=== PATIENT | female | born 1950 | race Caucasian/White ===

== ENCOUNTER → 2020-09-02 13:36 | Outpatient (CLI) | payer MEDICARE, SELFPAY ==
--- NOTE | ~2020-09-02 | MM_ITS ---
EXAMINATION: MM screening veronique BI [facility] HISTORY: Screening TECHNIQUE: Craniocaudal and mediolateral oblique 3-D tomosynthesis images were obtained and synthetic 2-D images were generated. CAD analysis was submitted and interpreted. COMPARISON: Comparison to multiple prior studies sequentially, with oldest reviewed study dated 02/11. BREAST PARENCHYMAL COMPOSITION: There are scattered areas of fibroglandular density. FINDINGS: There is no evidence of suspicious mass, calcification, or architectural distortion to sugg est malignancy in either breast. There has been no suspicious interval change. IMPRESSION: 1. No mammographic evidence of malignancy. 2. Recommend routine screening mammography in one year. BI-RADS Category 1: Negative Reviewed, dictated and finalized at location A.
== END ==
PROVIDERS: PCP Family Medicine; Visit Provider Family Medicine
DX: Z12.31 Encounter for screening mammogram for malignant neoplasm of breast (principal)
CPT/HCPCS: 77063; 77067

== ENCOUNTER → 2022-03-27 12:06 | Outpatient (CLI) | payer MEDICARE, SELFPAY ==
--- NOTE | ~2022-03-27 | MM_ITS ---
EXAMINATION: MM screening veron[facility] HISTORY: Screening mammogram TECHNIQUE: Craniocaudal and mediolateral oblique 3-D tomosynthesis images were obtained and synthetic 2-D images were generated. CAD analysis was submitted and interpreted. COMPARISON: 09/12/2020, 04/03/2019, 02/26/2017 bilateral screening mammogram examinations BREAST PARENCHYMAL COMPOSITION: There are scattered areas of fibroglandular density. FINDINGS: There is no evidence of suspicious mass, calcification, or architectural distortion to sugg est malignancy in either breast. There has been no suspicious interval change. IMPRESSION: 1. No mammographic evidence of malignancy. 2. Recommend routine screening mammography in one year. BI-RADS Category 1: Negative Reviewed, dictated and finalized at location A.
== END ==
PROVIDERS: PCP Family Medicine; Visit Provider Family Medicine
DX: Z12.31 Encounter for screening mammogram for malignant neoplasm of breast (principal)
CPT/HCPCS: 77063; 77067

== ENCOUNTER 2023-01-29 10:02 | Outpatient (CLI) | payer MEDICARE, SELFPAY ==
[2023-01-29 19:00] LABS: Basophils Absolute Auto 0.1 K/mm3 (0.0-0.1); Basophils Percent Auto 0.9 % (0.2-1.2); Eosinophils Absolute Auto 0.2 K/mm3 (0-0.3); Eosinophils Percent Auto 3.2 % (0-4.4); Hematocrit 43.7 % (37.0-47.0); Hemoglobin 14.2 g/dL (12.0-15.0); Immature Granulocyte Absolute 0.01 K/mm3 (0.00-0.031); Immature Granulocyte Percent A 0.2 % (0-0.5); Lymphocytes Absolute Auto 1.46 K/mm3 (0.9-3.2); Lymphocytes Percent Auto 27.2 % (18.3-44.2); Mean Corpuscular HGB Conc 32.5 g/dl (32-36); Mean Corpuscular Hemoglobin 30.1 pg (26-34); Mean Corpuscular Volume 92.8 fl (80-100); Mean Platelet Volume 10.7 fl (7.4-10.4); Monocytes Absolute Auto 0.3 K/mm3 (0.1-0.6); Monocytes Percent Auto 6.3 % (2.6-8.5); Neutrophils Absolute Auto 3.3 K/mm3 (1.3-6.7); Neutrophils Percent Auto 62.2 % (45.5-73.1); Platelet Count Result 205 k/mm3 (150-375); Red Blood Count 4.71 M/mm3 (4.2-5.4); Red Cell Distribution Width 12.5 % (11.5-14.5); White Blood Count 5.4 K/mm3 (4.5-10.0)
[2023-01-29 20:15] LABS: Alanine Aminotransferase 21 U/L (6-35); Albumin Level 4.7 g/dL (3.5-5.1); Alkaline Phosphatase 83 U/L (38-126); Anion Gap 8 mmol/L (8-16); Aspartate Amino Transferase 39 U/L (14-36); Bilirubin,Total 0.8 mg/dL (0.2-1.3); Blood Urea Nitrogen 18 mg/dL (7-17); Calcium 9.1 mg/dL (8.4-10.2); Carbon Dioxide 29 mmol/L (22-30); Chloride 101 mmol/L (98-107); Cholesterol 294 mg/dL (0-200); Estimated Glomerular Filt Rate > 60; Glucose 87 mg/dL (65-110); HDL Direct 38 mg/dL; Potassium 3.6 mmol/L (3.4-5.0); Sodium 138 mmol/L (137-145); Triglycerides 181 mg/dL (<150)
[2023-01-29 20:27] LABS: LDL Cholesterol Direct 164 mg/dL
[2023-01-29 20:42] LABS: Appearance Urine Clear (Clear); Bacteria Urine 1+ /hpf; Bilirubin Urine Negative (Negative); Blood Urine Negative (Negative); Color Urine Yellow (Yellow); Glucose Urine UA Negative (Negative); Ketones Urine Negative (Negative); Leukocyte Esterase Ur 1+ LEU/UL (NEGATIVE); Nitrate Urine Negative (Negative); Non Pathogenic Casts 0-2; Protein Urine Negative (Negative); RBC Urine 0-2 /hpf (0-2); Specific Grav Ur 1.003 (1.001-1.035); Squamous Epithelial Cell Urine Few /hpf (Few); Urobilinogen Urine 0.2 mg/dL (<2.0); WBC Urine 0-5 /hpf (0-3)
[2023-01-29 22:29] LABS: Add Urine Microscopic? YES
[2023-02-02 22:00] LABS: Vitamin D 1,25 (OH)2 Total 51 pg/mL (18-72); Vitamin D2 1,25 (OH)2 <8 pg/mL; Vitamin D3 1,25 (OH)2 51 pg/mL
== END 2023-01-29 10:03 | disposition home or self-care (01) ==
PROVIDERS: PCP Family Medicine; Visit Provider Family Medicine
DX: E78.2 Mixed hyperlipidemia (principal); K59.09 Other constipation; I10 Essential (primary) hypertension; E55.9 Vitamin D deficiency, unspecified; D51.9 Vitamin B12 deficiency anemia, unspecified
CPT/HCPCS: 36415; 80048; 80061; 80076; 81001; 82607; 82652; 83735; 84443; 85025

== ENCOUNTER → 2023-02-06 10:11 | Outpatient (CLI) | payer MEDICARE, SELFPAY ==
--- NOTE | ~2023-02-06 | XR_ITS ---
AP view of the pelvis and AP and lateral views of the bilateral hips Clinical history: Pain Findings: No acute fracture or dislocation is seen. There is advanced degenerative change of the bila teral hip joints, especially at the superior aspect. There is joint space narrowing, sclerotic change , and probably areas of subchondral cystic change. Small femoral head neck junction osteophytes are p resent bilaterally. Soft tissues are unremarkable. Impression: Advanced bilateral hip joint osteoarthritis. No fracture or dislocation. Reviewed, dictated and finalized at location M. Impression: Advanced bilateral hip joint osteoarthritis. No fracture or dislocation.
--- NOTE | ~2023-02-06 | XR_ITS ---
Lumbosacral Spine: AP, oblique, and lateral views Clinical History: Pain Findings: The normal lordotic curve is maintained. Mild anterior wedging deformity of L4 noted. There are mild degenerative disc changes of the lumbar spine. There is mild facet arthropathy from L3 thro ugh S1. The sacroiliac joints are normally outlined. Impression: Minimal anterior wedging deformity of L4. Mild degenerative spondylosis, as above. Reviewed, dictated and finalized at location . Impression: Minimal anterior wedging deformity of L4. Mild degenerative spondylosis, as above.
== END ==
PROVIDERS: PCP Family Medicine; Visit Provider Family Medicine
DX: G89.29 Other chronic pain (principal); M54.41 Lumbago with sciatica, right side; M54.42 Lumbago with sciatica, left side; M25.552 Pain in left hip; M25.551 Pain in right hip; M16.0 Bilateral primary osteoarthritis of hip; M48.56XA Collapsed vertebra, not elsewhere classified, lumbar region, initial encounter for fracture; M43.06 Spondylolysis, lumbar region
CPT/HCPCS: 72110; 73521

== ENCOUNTER 2023-04-24 13:30 | Outpatient (RCR) | payer MEDICARE, SELFPAY ==
--- NOTE | 2023-02-27 13:42 | PTOPEVAL1 ---
Assessment and note entered by Nancy Kapadia, PT Evaluation Information Assessment Status Evaluation Diagnosis chronic pain R hip, L hip, low back with sciatica R and L LE Onset over one year ago Subjective Information gradual increase in back pain; had x rays of back ; go to fitness center 3x/wk- treadmill, stationary bike, sometimes do arm weights; xray report: hips: advanced degenerative arthritis in both hips ; lumbar: minimal degenerative changes, anterior wedging L 4 Reported Pain Level Pain Score Self Report Additional Pain Score Comments pain range in the past week: 0-6 /10; back pain, radicular to L ankle intermittent, L anterior hip/ R radicular to above knee; decrease pain with duloxetine- new script, hot bath; increase pain with rainy weather, go on treadmill for one hour- too long, discussed less pressure on back with stationary bike; sitting too long- 1 hour; lifting at [employer]; sleep is not disrupted due to back pain; Assessment PT Clinical Summary Josephine has the diagnosis of chronic pain, back pain - sciatica, R hip and L hip pain. She reports gradual increase in back pain, without recent injury or trauma to back. Intermittent sciatica into R leg to above knee and L LE to ankle. She has a history of lumbar discectomy, over 10 yrs ago. Her pain is increased with sitting or walking too long, lifting. Self assessment Oswestry score of 40% limitation in activity level. xray reports hip arthritis R & L. With the evaluation, she has decreased ROM of both hips, IR and ER motions; hamstring tightness on L with pain increase back; decreased strength of Trunk and hips, L weaker than R; poor standing position of trunk and tends to sit with her legs crossed and rounded trunk. Skilled PT services are indicated for modalities to decrease pain, therapeutic exercises to increase trunk and hip flexibility and strength, education for posture correction and body mechanics. And pain management techniques and prevention of further back issues. Plan of Care Interventions Hot Pack/Cold Pack,Manual Therapy,Mechanical Traction,Neuro Re-education,Patient/Caregiver Education,Therapeutic Activities,Therapeutic
--- NOTE | 2023-02-27 13:45 | PCPTNOTE ---
during the evaluation, pt reports she will be out of town from March 07 to .
--- NOTE | 2023-03-26 11:49 | PTOPPROG ---
Assessment and note entered by aNncy Kapadia, PT Evaluation Information Assessment Status Progress Diagnosis chronic pain R hip, L hip, low back with sciatica R and L LE Onset over one year ago Subjective Information Josephine reports: back is still hurting, depends upon what she does; some of the exercises hurt her back; will be going out of town soon for family memebers' in [place], not sure of the date yet; wants to continue therapy; needs her to get therapy prior to insurance to approve an MRI of her back; PAIN range in the past week 1-10/10, low back, into L LE to mid thigh & R to mid thigh; increase pain with trunk extension; decrease pain with sitting, resting, hot bath; Assessment PT Clinical Summary Josephine has received a total of 5 PT sessions; she was out of town for 1 week of the session. Compared to the initial evaluation: pain rating is worse, was 0-6/10 and is now 1-10/10; radicular pain is less in L- was to ankle, now to mid thigh and R is the same; increase flexibility of L hamstring with SLR, with increase back pain; continues to have R trunk and shoulder forward rotation in standing; 2 minute walking distance increased by 40'; Oswestry self assessment rating improved by 4%, from 40 to 36% limitations; She has been educated on home exercise program and posture. Plan of Care Interventions Aquatic Therapy,Electrical Stimulation,Hot Pack/ Cold Pack,Manual Therapy,Neuro Re-education, Patient/Caregiver Education,Therapeutic Activities, Therapeutic Exercise,Ultrasound,Other Other Interventions taping PT Services Indicated Yes Treatment Frequency and 2x/wk for 4 weeks Duration These treatments will address the objective and functional deficits as defined above. The patient will be advanced safely and appropriately in order for the patient to progress towards his/her prior level of function. Additional exercises will be introduced and as well as a comprehensive home exercise program upon discharge, if needed, ?to ensure carryover of functional gains achieved in the clinic. This treatment plan has been reviewed and agreement upon by the patient.
--- NOTE | 2023-03-26 11:54 | PCPTNOTE ---
during today's progress/reeval, pt reports she will be going out of town for great nephew's soon, does not know the date yet. so, she did not schedule for next week, and will call and add appt once she finds out the date.
--- NOTE | 2023-04-24 14:12 | PTOPPROG ---
Assessment and note entered by Nancy Kapadia, PT Evaluation Information Assessment Status Progress Diagnosis chronic pain R hip, L hip, low back with sciatica R and L LE Onset over one year ago Subjective Information Josephine reports: she has good days and bad days; thinks she overdid it with the pool exercises a few days ago at her daughter's pool--did too much; is not able to walk or do as much as she wants to, have to sit and rest due to pain; wants to get an MRI to check her back and see what is going on; she would consider surgery if it is not a major one, but does not want any major, involved back surgery; is doing her home exercises and understands that she has to do a little, then rest PAIN: range in the past week 2-10/10, low back, into R and L LE to proximal to knee, to L ankle at times- intermittent post thighs; increase pain with walking decrease pain with sitting, resting, taking prescription meds, not sure if working or helping Oswestry self assessment score of 42% limitation in activity level; discussed home stim unit with pt--she does not have one, educated on obtaining and pad placement of the unit; she is interested in obtaining one; Assessment PT Clinical Summary Josephine has received a total of 10 PT sessions. Compared to the last reevaluation: pain rating is about the same, was 1-10/10 and now 2-10/10; radicular pain into R LE is the same to above the knee and into the L is worse--sometimes into ankle Self assessment Oswestry score is 2% worse, now 42% limitation in activity level; increase hip flexibility of R piriformis; slight increase R hip strength and L is about the same--increase in pain limits her doing more; 2 minute walking test distance decreased by 40'; She has been educated on posture, home exercise program--land and in the water, pain management and control techniques. The goals were partially met. PLAN: HOLD PT and she is to follow up with . If PT is to continue, she will obtain a new script Plan of Care Interventions Aquatic Therapy,Electrical Stimulation,Hot Pack/ Cold Pack,Manual Therapy,Neuro Re-education, Patient Education,Therapeut
--- NOTE | 2023-05-24 13:26 | PTOPDC ---
Assessment and note entered by Nancy Kapadia, PT Evaluation Information Assessment Status Discharge - Pt Not Presen Diagnosis chronic pain R hip, L hip, low back with sciatica R and L LE Onset over one year ago Assessment PT Clinical Summary No further orders were received after the 04-24-23 reassessment. Therefore, she will be discharged at this time. Refer to that progress report for her status. Plan of Care PT Services Indicated No
== END 2023-05-23 12:42 | disposition home or self-care (01) ==
LOC: ANHPT 13:30
PROVIDERS: PCP Family Medicine; Visit Provider Family Medicine
DX: M25.551 Pain in right hip (principal); M25.552 Pain in left hip; M54.41 Lumbago with sciatica, right side; M54.42 Lumbago with sciatica, left side; G89.29 Other chronic pain
CPT/HCPCS: 97014; 97110; 97113; 97140; 97161; 97530; G0283

== ENCOUNTER → 2023-05-30 10:13 | Outpatient (CLI) | payer MEDICARE, SELFPAY ==
--- NOTE | ~2023-05-30 | MR_ITS ---
MRI of the lumbar spine Clinical History: Sciatica Technique: Axial T2-weighted images, and sagittal T1-weighted, T2-weighted, and T2 fat-sat images wer e acquired. Findings: No fracture identified. 5 mm retrolisthesis of L5 over S1 present. No suspicious bone marro w signal abnormality seen. At L1-L2, there is mild diffuse disc bulge and mild facet arthropathy. No central canal stenosis or d efinite neural foraminal narrowing. At L2-L3, there is mild disc bulge and mild facet arthropathy. No central canal stenosis or neural fo raminal narrowing. At L3-L4, there is disc bulge and moderate to advanced facet arthropathy. There is moderate central c anal stenosis/thecal sac compression. There is mild bilateral neural foraminal narrowing. At L4-L5, there is diffuse disc bulge and severe facet arthropathy, resulting in severe spinal canal stenosis/thecal sac compression. There is moderate to severe right neural foraminal narrowing and mil d left neural foraminal narrowing. At L5-S1, there is diffuse disc bulge and facet arthropathy. There is mild central canal stenosis. Th ere is severe bilateral neural foraminal narrowing. Paravertebral soft tissues are unremarkable. Impression: Severe degenerative spondylosis at L4-L5 and L5-S1, as detailed above. Moderate to severe degenerative spondylosis at L3-L4, as detailed above. 5 mm retrolisthesis of L5 over S1. Reviewed, dictated and finalized at [facility]. Impression: Severe degenerative spondylosis at L4-L5 and L5-S1, as detailed above. Moderate to severe degenerative spondylosis at L3-L4, as detailed above. 5 mm retrolisthesis of L5 over S1.
== END ==
PROVIDERS: PCP Family Medicine; Visit Provider Family Medicine
DX: M54.31 Sciatica, right side (principal); M54.32 Sciatica, left side; M47.896 Other spondylosis, lumbar region
CPT/HCPCS: 72148

== ENCOUNTER 2023-11-28 10:09 | Outpatient (CLI) | payer MEDICARE, SELFPAY ==
--- NOTE | 2023-11-28 | ECG_ITS ---
Measurements Intervals [place] Rate: 78 P: 56 ID: [id number] QRS: -13 QRSD: 80 T: 52 QT: 353 QTc: 402 Interpretive Statements SINUS RHYTHM LOW QRS VOLTAGE IN PRECORDIAL LEADS CANNOT RULE OUT SEPTAL INFARCT, AGE INDETERMINATE BASELINE WANDER- II, III ABNORMAL ECG COMPARED TO ECG 03/18/2019 13:20:43 NO SIGNIFICANT CHANGES Electronically Signed On 11-28-2023 12:22:31 ASSEMBLY ADJUSTER by Chris Childress D.O.
--- NOTE | ~2023-11-28 | XR_ITS ---
XR chest 2V DATE: 11/28/2023 10:30 INDICATION: Lumbar spinal stenosis. Preoperative evaluation. TECHNIQUE: PA and lateral views COMPARISON: March 18, 2019 2 view chest FINDINGS: Bilateral hyperinflation suggesting obstructive airways disease. No pulmonary infiltrate or consolidation, pleural effusion or pulmonary vascular congestion or pneumothorax. Normal heart size. No hilar or mediastinal enlargement. Aortic arch calcification. Status post cholecystectomy. IMPRESSION: Bilateral hyperinflation suggesting COPD No active cardiac pulmonary disease Aortic atherosclerosis Reviewed, dictated and finalized at location L. ENGINEER
[2023-11-28 10:49] LABS: Hematocrit 42.1 % (37.0-47.0); Hemoglobin 13.8 g/dL (12.0-15.0); Mean Corpuscular HGB Conc 32.8 g/dl (32-36); Mean Corpuscular Hemoglobin 29.9 pg (26-34); Mean Corpuscular Volume 91.3 fl (80-100); Platelet Count Result 212 k/mm3 (150-375); Red Blood Count 4.61 M/mm3 (4.2-5.4); Red Cell Distribution Width 12.1 % (11.5-14.5); White Blood Count 4.5 K/mm3 (4.5-10.0)
[2023-11-28 11:01] LABS: Prothrombin Time 13.4 Seconds (11.1-14.7)
[2023-11-28 11:05] LABS: Alanine Aminotransferase 26 U/L (6-35); Albumin Level 4.6 g/dL (3.5-5.1); Alkaline Phosphatase 80 U/L (38-126); Anion Gap 10 mmol/L (8-16); Aspartate Amino Transferase 33 U/L (14-36); Bilirubin,Total 0.6 mg/dL (0.2-1.3); Blood Urea Nitrogen 14 mg/dL (7-17); Calcium 9.6 mg/dL (8.4-10.2); Carbon Dioxide 29 mmol/L (22-30); Chloride 98 mmol/L (98-107); Estimated Glomerular Filt Rate > 60; Glucose 91 mg/dL (65-110); Potassium 3.9 mmol/L (3.4-5.0); Sodium 137 mmol/L (137-145)
== END 2023-11-28 10:10 | disposition home or self-care (01) ==
PROVIDERS: PCP Family Medicine; Visit Provider Anesthesiology Pain Medicine
DX: M48.062 Spinal stenosis, lumbar region with neurogenic claudication (principal); G89.29 Other chronic pain; I10 Essential (primary) hypertension; D51.9 Vitamin B12 deficiency anemia, unspecified; I25.10 Atherosclerotic heart disease of native coronary artery without angina pectoris
CPT/HCPCS: 36415; 71046; 80053; 85027; 85610; 93005

== ENCOUNTER 2023-12-03 05:55 | Day surgery (SDC) | payer MEDICARE, SELFPAY ==
[2023-11-28 12:27] VITALS: BMI 23.1
--- NOTE | ~2023-12-03 | XR_ITS ---
EXAMINATION: XR fluoroscopy no charge DATE: 12/03/2023 10:29 INDICATION: Lumbar spinal stenosis. TECHNIQUE: 193 intraoperative fluoroscopic views of the lumbar spine were obtained. I was not present . Fluoroscopy exposure time was 207 seconds. COMPARISON: Lumbar spine MRI 05/30/2023 FINDINGS: There is severe lumbar spondylosis. Instruments overlie the posterior elements at L3-L4 and L4-L5. IMPRESSION: 1. Severe lumbar spondylosis. Reviewed, dictated and finalized at location A. 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
--- NOTE | 2023-12-03 06:53 | PM.HPGS ---
History of Present Illness History of Present Illness Consent: Risks, benefits, and alternatives have been discussed and questions answered. Patient agrees to proceed with procedure. Chief complaint: Lumbar Spinal Stenosis w/ INC Narrative: Josephine Guerrier is a 73 year old female with chronic, progressive disabling and recalcitrant lumbar spinal stenosis with painful intermittent neurogenic claudication secondary to ligamentum flavum hypertrophy over the past several years despite aggressive conservative treatment to include PT, oral and topical analgesics, opioid and nonopioid analgesics, injection, time, rest and behavior/activity modification over the past 6-12 months resulting in severe limitations in ability to stand greater than 10-15 minutes, walk greater than 100-150ft, participate in activities including ADL's and self-care. Review of Systems Review of Systems: All systems reviewed & are unremarkable except as noted in HPI and below PMFSH Past Medical History Medical History At moderate risk for fall (~08/21/23) BMI 23.0-23.9, adult BMI 24.0-24.9, adult Chronic constipation Chronic hip pain, bilateral X-ray of the hips 02/06/2023 revealed advanced osteoarthritis bilaterally. Chronic left-sided low back pain without sciatica Chronic low back pain with bilateral sciatica X-ray of the lumbar spine on 02/06/2023 reveals mild facet arthropathy L3 through S1 with mild degenerative disc disease. Anterior wedging of L4 vertebrae. MRI of the lumbar spine on 05/30/2023 reveals severe degenerative disc disease at L4-L5 and L5-S1 with severe central spinal stenosis at L4-L5 and L5-S1 with severe right neuroforaminal narrowing at L4-L5 Chronic low back pain with right-sided sciatica COVID-19 (~12/23/20) Osteoarthritis involving multiple joints on both sides of body Overweight (BMI 25.0-29.9) Polyp of colon colon polyp 04/14/2013. Repeat colonoscopy Mar, 2018 normal Seasonal allergic rhinitis Family History Family History Mother Patient's mother is in good health Father Family history of cardiovascular disease, Onset Age: 80 Grandparent Family history of cardiovascular disease, Onset Age: 75 Family history of malignant neoplasm of bone, Onset Age: 79 Family history of malignant neoplasm of urinary bladder, Onset Age: 82 Sibling Family history of cardiovascular disease Family history of malignant neoplasm Carcinoma of colon Social History Social History Smoking status: Never smoker Second hand tobacco smoke exposure: No Alcohol intake: current Alcohol use details: rarely Substance use: never Substance use type: does not use Current Housing: Decline to Answer Concerned About Future Housing: Decline to Answer Difficulty Paying Gas/Electric Bills: Decline to Answer Difficulty Paying for Meds: Decline to Answer Currently Unemployed: Decline to Answer Education: Decline to Answer Difficulty w/ Childcare or Family Care: Decline to Answer Living arrangements: with family Spiritual care concerns: No Meds Home Medications and Allergies Home Medications Medication Instructions Recorded Confirmed Type cyanocobalamin (vitamin B-12) 1,000 mcg PO DAILY 01/23/22 11/28/23 History 1,000 mcg tablet polyethylene glycol 3350 17 17 g PO DAILY PRN constipation 08/01/22 11/28/23 History gram/dose oral powder (Miralax) benazepril 40 mg tablet 40 mg PO DAILY #90 tabs 02/06/23 11/28/23 Rx meloxicam 15 mg tablet 15 mg PO DAILY PRN pain #90 tabs 02/07/23 11/28/23 Rx duloxetine 60 mg capsule,delayed 60 mg PO DAILY #30 caps 02/27/23 11/28/23 Rx release amlodipine 5 mg tablet 5 mg PO DAILY #30 tabs 04/15/23 11/28/23 Rx cholecalciferol (vitamin D3) 50 2,000 unit PO DAILY 08/21/23 11/28/23 History mcg (2,000 unit) c
--- NOTE | 2023-12-03 07:00 | WPDHPUPDATE1 ---
History and Physical Update Update Date/Time: 12/03/23 07:00 History and Physical has been reviewed, including an updated exam of the patient. There are NO changes in the patient's condition. Risks, benefits, and alternatives have been discussed and questions answered. Patient agrees to proceed with procedure.
[2023-12-03 07:32] VITALS: BP 154/83; PULSE 77; RESP 16; TEMP 36.9; O2SAT 99; BMI 34.0
[2023-12-03] MEDS: LACTATED RINGERS 1,000 ML 30 ML IV CONT (07:46)
--- NOTE | 2023-12-03 08:07 | WPDANESEPPF ---
Anes - Initial Pre Proc Eval Procedure: Operation Date: 12/03/23 08:45 Proposed Procedures p Bilateral L3-4, L4-5 Minimally Invasive Lumbar Decompression under Fluoroscopic Guidance, Possible Epidurogram - Aidan Bah MD Date/Time: 12/03/23 08:07 Surgeon: Aidan Bah MD Pre Op Diagnosis: Lumbar Spinal Stenosis w/ INC Patient Data Age: 73 Gender: F Height: 1.7 m Weight: 98.4 kg Last Vital Signs Temp 36.9 C 12/03/23 07:32 Pulse 77 12/03/23 07:32 Resp 16 12/03/23 07:32 BP 154/83 H 12/03/23 07:32 Pulse Ox 99 12/03/23 07:32 O2 Del Method Room Air 12/03/23 07:32 Allergies Allergy/AdvReac Type Severity Reaction Status Date / Time aspirin Allergy Unknown Unknown Verified 12/03/23 07:26 Home Medications Medication Instructions Recorded Confirmed Type cyanocobalamin (vitamin B-12) 1,000 mcg PO DAILY 01/23/22 12/03/23 History 1,000 mcg tablet polyethylene glycol 3350 17 17 g PO DAILY PRN constipation 08/01/22 12/03/23 History gram/dose oral powder (Miralax) benazepril 40 mg tablet 40 mg PO DAILY #90 tabs 02/06/23 12/03/23 Rx meloxicam 15 mg tablet 15 mg PO DAILY PRN pain #90 tabs 02/07/23 12/03/23 Rx duloxetine 60 mg capsule,delayed 60 mg PO DAILY #30 caps 02/27/23 12/03/23 Rx release amlodipine 5 mg tablet 5 mg PO DAILY #30 tabs 04/15/23 12/03/23 Rx cholecalciferol (vitamin D3) 50 2,000 unit PO DAILY 08/21/23 12/03/23 History mcg (2,000 unit) capsule magnesium oxide 500 mg tablet 500 mg PO BID 08/21/23 12/03/23 History tramadol 50 mg tablet 50 mg PO Q6H PRN pain #60 tabs 08/21/23 12/03/23 Rx Patient hx anesthesia problems: none Family hx anesthesia problems: none Results Review: All pre-operative results and documents have been reviewed as part of the pre-operative evaluation. [facility] Past Medical History Medical History At moderate risk for fall (~08/21/23) BMI 23.0-23.9, adult BMI 24.0-24.9, adult Chronic constipation Chronic hip pain, bilateral X-ray of the hips 02/06/2023 revealed advanced osteoarthritis bilaterally. Chronic left-sided low back pain without sciatica Chronic low back pain with bilateral sciatica X-ray of the lumbar spine on 02/06/2023 reveals mild facet arthropathy L3 through S1 with mild degenerative disc disease. Anterior wedging of L4 vertebrae. MRI of the lumbar spine on 05/30/2023 reveals severe degenerative disc disease at L4-L5 and L5-S1 with severe central spinal stenosis at L4-L5 and L5-S1 with severe right neuroforaminal narrowing at L4-L5 Chronic low back pain with right-sided sciatica COVID-19 (~12/23/20) Osteoarthritis involving multiple joints on both sides of body Overweight (BMI 25.0-29.9) Polyp of colon colon polyp 04/14/2013. Repeat colonoscopy Mar, 2018 normal Seasonal allergic rhinitis Surgical History Surgical History (Updated 12/03/23 @ 08:08 by Saurabh Kelley MD) History of cholecystectomy History of tubal ligation Status post lumbar surgery Family History Family History Mother Patient's mother is in good health Father Family history of cardiovascular disease, Onset Age: 80 Grandparent Family history of cardiovascular disease, Onset Age: 75 Family history of malignant neoplasm of bone, Onset Age: 79 Family history of malignant neoplasm of urinary bladder, Onset Age: 82 Sibling Family history of cardiovascular disease Family history of malignant neoplasm Carcinoma of colon Social History Social History (Updated 12/03/23 @ 08:09 by Saurabh Kelley MD) Smoking status: Former smoker Second hand tobacco smoke exposure: No Alcohol intake: current Alcohol use details: rarely Substance use: never Substance use type: does not use Current Housing: Decline to Answer Concerned About Future Housing: Decline to Answer Difficulty Paying Gas/Electric Bills
[2023-12-03] MEDS: ceFAZolin SODIUM 2 GM/20 ML SW SYRINGE IV PUSH (09:12)
[2023-12-03] MEDS: LIDOCAINE HCL 2% PF INJ 5 ML VIAL 10 ML INFILTRATE (09:33)
[2023-12-03] MEDS: BUPIVACAINE/EPINEPHRINE 0.5% 50 ML VIAL 10 ML INFILTRATE (09:33)
[2023-12-03 10:22] VITALS: BP 134/74; PULSE 76; RESP 16; O2SAT 100
--- NOTE | 2023-12-03 10:23 | W.PM.PROC2 ---
Procedure Note - Detailed Date of Procedure 12/03/23 Pre-op Diagnosis Lumbar Spinal Stenosis w/ INC Post-op Diagnosis Same Procedure Performed Bilateral L3-4, L4-5 minimally invasive lumbar decompression under fluoroscopic guidance. Surgeon Aidan Bah MD Anesthesia MAC and Local Description of Procedure INFORMED CONSENT: Risks, benefits, and alternatives to the procedure were discussed in detail with the patient who expressed explicit understanding and consent to proceed. Risks discussed with the patient included but were not limited to risk of serious local or systemic infection, bleeding/bruising, epidural hematoma, dural puncture or tear resulting in CSF leak and acute or chronic post-dural puncture headache, scarring/deformity, immediate or delayed allergic reaction, decreased mobility, failure to treat pain, inadvertent neurologic injury resulting in increased pain, weakness/paralysis or numbness, inadvertent organ injury, need for additional surgery, allergic reaction, heart attack, stroke, seizure, coma, . Anesthetic risks were also briefly discussed by myself and the swabber. The patient expressed understanding and consent to proceed, agreeing that potential benefits outweigh risk of harm. All materials required for the procedure were immediately available prior to procedure start. Site and side were confirmed with the patient, compared carefully to the patient chart and consent, and marked prior to transport to the operating room. Appropriate time out procedure was performed per protocol prior to procedure start. PROCEDURE IN DETAIL: The patient was brought to the operative suite and placed in the prone position. Appropriate ASA standard monitors were attached. Anesthesia was initiated without difficulty or event. Eyes were protected. Pressure points were padded with joints in neutral position. When appropriate, breasts and genitals were evaluated and protected. Eyes were checked and were free from undue pressure. Skin overlying the procedure site was marked with sterile marker. Surgical area was prepared in a typical sterile fashion with ChloraPrep and allowed to dry for at least 3 minutes prior to sterilely draping the surgical site. The lumbar spine was identified in the AP fluoroscopic view with slight cephalad tilt perfectly aligning the endplates at the targeted levels with spinous processes bisecting the transpedicular plane. After identifying the intended incision site approximately 1.5 levels inferior to the level of interest, the area was anesthetized by infiltration with no more than 10ml of a 1:1 admixture of 0.5% PF bupivacaine with epinephrine and 2% PF lidocaine with epinepherine via a 27-gauge needle after negative aspiration. A 22-gauge spinal needle was used to provide additional and adequate local anesthesia to the level of the interspinous ligament, ligamentum flavum and the periosteum of the lamina at the intended treatment levels. In the AP view, a #11 scalpel blade was used to create a single stab incision at the intended incision site on the targeted side. The Vertos MILD kit was opened and the included cannula and trocar assembly was advanced through the incision to contact the midportion of the Right lamina just adjacent to the spinous process at L5. Once seated, the lateral view was used to gauge depth demonstrating the most anterior tip of the trocar posterior to the epidural space at all times. The garment parts cutter machine-provided cannula stabilizer was placed over the trocar flush to the patient's lumbar flank. Cannula obturator with handle was removed. Included depth guide was then attached to the insertion port on the cannula and set to an intial depth of 15 mm. The bone rongeur was advanced to the depth of the lumbar lamina at the targeted level. Depth gauge was then adjusted allowing rongeur tip to advance in the contralateral oblique view to the anterior border of the superior and inferior lamina at the
--- NOTE | 2023-12-03 10:31 | WPDANESPN ---
Anes - Prog Note Post-Op Date/Time: 12/03/23 10:31 Cardiovascular status: normal Respiratory status: normal Airway patency: baseline Mental status: baseline Post-Op hydration status: normal Vital Signs: Last Vital Signs Temp 36.9 C 12/03/23 07:32 Pulse 76 12/03/23 10:27 Resp 16 12/03/23 10:27 BP 134/74 12/03/23 10:27 Pulse Ox 100 12/03/23 10:27 O2 Del Method Room Air 12/03/23 10:27 Pain Score (VAS): 0/10 I/O: Intake & Output 12/02/23 12/03/23 12/03/23 23:59 07:59 15:59 Intake Total 700 Balance 700 Patient Feedback: Patient satisfied with anesthetic care.
[2023-12-03 10:32] VITALS: BP 156/87; PULSE 75; RESP 16; O2SAT 100
[2023-12-03 10:48] VITALS: BP 154/78; PULSE 74; RESP 16; O2SAT 100
== END 2023-12-03 10:58 | disposition home or self-care (01) ==
PROVIDERS: PCP Family Medicine; Visit Provider Anesthesiology Pain Medicine
PROC: (CPT 0275T; principal; 2023-12-03 08:45)
DX: M48.062 Spinal stenosis, lumbar region with neurogenic claudication (principal); Z00.6 Encounter for examination for normal comparison and control in clinical research program
CPT/HCPCS: 0275T; 99199

== ENCOUNTER → 2024-09-22 13:59 | Outpatient (CLI) | payer MEDICARE, SELFPAY ==
--- NOTE | ~2024-09-22 | XR_ITS ---
EXAMINATION: XR hip LT 2V w AP pelvis DATE: 09/22/2024 14:13 INDICATION: Left hip pain. TECHNIQUE: An anteroposterior view of the pelvis and 2 views of left hip were obtained. COMPARISON: Pelvis and hip radiographs 02/06/2023 FINDINGS: There is lumbar dextrocurvature and severe spondylosis. No fracture. There is advanced oste oarthritis of the hips with flattening of the superior aspects of the femoral heads. IMPRESSION: 1. Advanced osteoarthritis of the hips. Reviewed, dictated and finalized at location B.
== END ==
LOC: EXPTROY 14:00
PROVIDERS: PCP Family Medicine; Visit Provider Family Medicine
DX: M16.0 Bilateral primary osteoarthritis of hip (principal)
CPT/HCPCS: 73502

== ENCOUNTER 2024-12-02 11:12 | Outpatient (CLI) | payer MEDICARE, SELFPAY ==
--- NOTE | ~2024-12-02 | MM_ITS ---
EXAMINATION: MM screening [facility] HISTORY: Screening TECHNIQUE: Craniocaudal and mediolateral oblique 3-D tomosynthesis images were obtained and synthetic 2-D images were generated. CAD analysis was submitted and interpreted. COMPARISON: Comparison to multiple prior studies sequentially, with oldest reviewed study dated 02/19. BREAST PARENCHYMAL COMPOSITION: Not dense: There are scattered areas of fibroglandular density. FINDINGS: There is no evidence of suspicious mass, calcification, or architectural distortion to sugg est malignancy in either breast. There has been no suspicious interval change. IMPRESSION: 1. No mammographic evidence of malignancy. 2. Recommend routine screening mammography in one year. BI-RADS Category 1: Negative Reviewed, dictated and finalized at location B. 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
== END 2024-12-02 11:13 | disposition home or self-care (01) ==
LOC: MICIMG 11:12
PROVIDERS: PCP Family Medicine; Visit Provider Family Medicine
DX: Z12.31 Encounter for screening mammogram for malignant neoplasm of breast (principal)
CPT/HCPCS: 77063; 77067

== ENCOUNTER 2025-04-29 09:56 | Outpatient (CLI) | payer MEDICARE, SELFPAY ==
--- NOTE | 2025-04-29 10:55 | ECG_ITS ---
Test Date: 2025-04-29 11:13:29 Measurements Intervals [place] Rate: 64 P: 58 MD: 133 QRS: -19 QRSD: 80 T: 44 QT: 404 QTc: 420 Interpretive Statements SINUS RHYTHM LOW QRS VOLTAGE IN PRECORDIAL LEADS CANNOT R/O SEPTAL INFARCT, AGE INDETERMINATE BASELINE ARTIFACT- I, II, III, AVR, AVL, AVF, V1 ABNORMAL ECG No previous ECG available for comparison Electronically Signed On 04-29-2025 11:24:50 CDT by Chris Childress D.O.
[2025-04-29 12:09] LABS: Basophils Absolute Auto 0.1 K/mm3 (0.0-0.1); Basophils Percent Auto 1.1 % (0.2-1.2); Eosinophils Absolute Auto 0.2 K/mm3 (0-0.3); Eosinophils Percent Auto 4.6 % (0-4.4); Hematocrit 40.8 % (37.0-47.0); Hemoglobin 13.5 g/dL (12.0-15.0); Immature Granulocyte Absolute 0.01 K/mm3 (0.00-0.031); Immature Granulocyte Percent A 0.2 % (0-0.5); Lymphocytes Absolute Auto 1.26 K/mm3 (0.9-3.2); Lymphocytes Percent Auto 27.6 % (18.3-44.2); Mean Corpuscular HGB Conc 33.1 g/dl (32-36); Mean Corpuscular Hemoglobin 30.5 pg (26-34); Mean Corpuscular Volume 92.3 fl (80-100); Mean Platelet Volume 10.6 fl (7.4-10.4); Monocytes Absolute Auto 0.3 K/mm3 (0.1-0.6); Monocytes Percent Auto 7.2 % (2.6-8.5); Neutrophils Absolute Auto 2.7 K/mm3 (1.3-6.7); Neutrophils Percent Auto 59.3 % (45.5-73.1); Platelet Count Result 185 k/mm3 (150-375); Red Blood Count 4.42 M/mm3 (4.2-5.4); Red Cell Distribution Width 12.2 % (11.5-14.5); White Blood Count 4.6 K/mm3 (4.5-10.0)
[2025-04-29 12:21] LABS: Albumin Level 4.5 g/dL (3.5-5.1); Anion Gap 7 mmol/L (4-12); Blood Urea Nitrogen 13 mg/dL (7-17); Calcium 9.5 mg/dL (8.4-10.2); Carbon Dioxide 30 mmol/L (22-30); Chloride 100 mmol/L (98-107); Estimated Glomerular Filt Rate > 60; Glucose 85 mg/dL (65-110); Potassium 3.7 mmol/L (3.4-5.0); Sodium 137 mmol/L (137-145)
[2025-04-29 12:32] LABS: Urine Cotinine NEGATIVE
== END 2025-04-29 09:57 | disposition home or self-care (01) ==
LOC: ANHSURGERY 10:01
PROVIDERS: PCP Family Medicine; Visit Provider Orthopaedic Surgery
DX: Z01.818 Encounter for other preprocedural examination (principal); M16.12 Unilateral primary osteoarthritis, left hip; R94.31 Abnormal electrocardiogram [ECG] [EKG]
CPT/HCPCS: 80048; 80307; 82040; 83036; 85025; 87081; 87181; 93005

== ENCOUNTER 2025-05-20 00:08 | Day surgery (SDC) | payer MEDICARE, SELFPAY ==
--- NOTE | 2025-04-29 10:00 | PC.NURSE ---
Report to the Outpatient Waiting Room, entrance under the green pavilion located off [facility], at time _6 AM on date _05/20/25 . Planned Procedure Time: __7:30 AM .? Time changes happen often and if your time is changed the preop area will call you the afternoon before. - You and your visitor will be asked to self-screen and do not enter if you have any COVID symptoms. Please call surgeon if you need to reschedule. - A mask is optional within the hospital at this time. Patients may have clear liquids (water, carbonated beverages, clear teas, apple juice) until 3 hours prior to surgery ( 4:30 AM) with a maximum of 20 ounces. - No food from midnight until time of surgery and no smoking, or chewing tobacco (or any form of nicotine). No chewing gum, candy or mints. Take only the following medications with a SIP of water on the morning of surgery: AMLODIPINE DO NOT STOP ANY OF YOUR OTHER PRESCRIPTION MEDICATIONS PRIOR TO SURGERY EXCEPT THE FOLLOWING Hold all vitamins and supplements for 3 days per anesthesiologist.LAST DOSE 05/16/25 Medications to discontinue per physician HOLD DICLOFENAC 7 DAYS PRE OP PER DR ARNDT Date to take last dose____05/12/25 MAY TAKE TYLENOL IF NEEDED FOR PAIN Please no make-up, nail french, hairspray, perfume, deodorant, or body powder the day of surgery.? No jewelry (including any body piercings) or valuables the day of surgery, leave them at home.? Please take a shower or bath the night before, or the morning of, surgery with an antibacterial soap.? Wear comfortable, loose fitting clothing.? Children are encouraged to wear pajamas. - Jewelry must be removed prior to entering the operating room.? Rings and piercings that are not removed may be cut off. - The hospital will not accept responsibility for valuables.? - Please leave all valuables, including medications, at home the day of surgery. If you are going home after surgery, a licensed rental car ferry driver must drive you home.? - NO public transportation without another adult if you receive anesthesia. - We recommend that an adult stay with you for 24 hours following discharge. - We also recommend that you do not drive, make important decision, drink alcoholic beverages, or take any drugs that were not prescribed by your health care provider for at least 24 hours after your discharge time. For Pediatric surgeries, we recommend two adults accompany the child home. Follow any additional instructions given to you from your surgeon. VERBAL AND WRITTEN instructions given to __PATIENT and asked if any additional questions and then verbalized understanding. Patient advised to call surgeon office or pre surgery nurse liaison [phone] if any additional questions.
[2025-04-29 10:05] VITALS: BMI 23.7
[2025-04-29 10:54] VITALS: BP 151/79; PULSE 66; RESP 18; TEMP 37; O2SAT 97
--- NOTE | 2025-05-19 09:42 | PM.IMHP ---
H&P: HPI History of Present Illness Date/Time: 05/19/25 09:42 Chief Complaint: Left hip DJD Narrative: 74-year-old female presents today for left anterior total hip arthroplasty. Patient has been having symptoms for over a year. Her symptoms started getting much worse at the end of last year. Patient has been taking diclofenac 75 mg twice a day, this is not significantly improved her symptoms. She has advanced osteoarthritis in both hips left total on worse than right. Patient has been using a walker full-time which has helped a little bit. At this point she feels she is ready proceed with total hip arthroplasty rather than continue nonsurgical treatment. Review of Systems Review of Systems: All systems reviewed & are unremarkable except as noted in HPI and below PMFSH Past Medical History Medical History (Updated 05/04/25 @ 08:51 by Washington Blood MD) MRSA (methicillin resistant Staphylococcus aureus) carrier BMI 22.0-22.9, adult At moderate risk for fall (~08/21/23) Overweight (BMI 25.0-29.9) Chronic hip pain, bilateral X-ray of the hips 02/06/2023 revealed advanced osteoarthritis bilaterally. Chronic low back pain with bilateral sciatica X-ray of the lumbar spine on 02/06/2023 reveals mild facet arthropathy L3 through S1 with mild degenerative disc disease. Anterior wedging of L4 vertebrae. MRI of the lumbar spine on 05/30/2023 reveals severe degenerative disc disease at L4-L5 and L5-S1 with severe central spinal stenosis at L4-L5 and L5-S1 with severe right neuroforaminal narrowing at L4-L5 Chronic low back pain with right-sided sciatica BMI 24.0-24.9, adult BMI 23.0-23.9, adult Polyp of colon colon polyp 04/14/2013. Repeat colonoscopy Mar, 2018 normal Seasonal allergic rhinitis COVID-19 (~12/23/20) Osteoarthritis involving multiple joints on both sides of body Chronic constipation stable with magnesium twice daily Chronic left-sided low back pain without sciatica Left hip pain Surgical History Surgical History Status post lumbar surgery History of tubal ligation History of cholecystectomy Family History Family History Mother Father Family history of cardiovascular disease, Onset Age: 80 Grandparent Family history of cardiovascular disease, Onset Age: 75 Family history of malignant neoplasm of bone, Onset Age: 79 Family history of malignant neoplasm of urinary bladder, Onset Age: 82 Sibling Family history of cardiovascular disease Family history of malignant neoplasm Carcinoma of colon Social History Social History (Reviewed 04/28/25 @ 08:27 by Morenita Roberson [facility]) Smoking packs per day: 1 Smoking cigarettes per day: 20.0 Years smoked: 15 Smoking pack-years: 15.00 Smoking status: Former smoker Tobacco type: cigarettes Second hand tobacco smoke exposure: No Smoking end date: 11/25/79 Additional smoking assessment comments: DENIES ANY FORM OF TOBACCO USE Alcohol intake: current Alcohol use details: ONE DRINK /MONTH Substance use: never Substance use type: does not use Current Housing: Decline to Answer Concerned About Future Housing: Decline to Answer Difficulty Paying Gas/Electric Bills: Decline to Answer Difficulty Paying for Meds: Decline to Answer Currently Unemployed: Decline to Answer Education: Decline to Answer Difficulty w/ Childcare or Family Care: Decline to Answer Living arrangements: with family Spiritual care concerns: No Meds Home Medications and Allergies Home Medications ?Medication ?Instructions ?Recorded ?Confirmed ?Type cholecalciferol (vitamin D3) 50 2,000 unit PO DAILY 08/21/23 04/29/25 History mcg (2,000 unit) capsule magnesium oxide 500 mg PO BID 08/21/23 04/29/25 History diclofenac sodium 75 mg 75 mg PO BID PRN pain #60 tabs 11/26/24 04/29/25 Rx tablet,delayed release cyanocobalamin (vitamin B-12) 2,500 mcg PO DAILY 12/30/24 04/29/25 History 1,000 mcg tablet amlodipine 5 mg tablet 5 mg PO DAILY #90 tabs 02/23/25 04/29/25 Rx benazepril 40 mg tablet 40 mg PO DAILY #90 tabs 02/23/25 04/29/25 Rx tramadol 50 mg tablet 50 mg PO Q6H PRN pain #60 tabs 04/23/25 04/29/25 Rx mupirocin 2 % topical ointment 1 applic topical BID #15 grams 05/04/25 Rx mupirocin 2 % topical ointment 1 applic topical BID #22 grams 05/04/25 Rx Allergies Allergy/AdvReac Type Severity Reaction Status Date / Time aspirin Allergy Unknown Unknown Verified 04/29/25 10:06 Exam Narrative: 74-year-old female very alert pleasant. She is walking with a walker. She is 5 ft 7 147 lb BMI is 23. She has approximate 5 degree flexion contracture left hip. It flexes to 100?, internal rotation is 0 external rotation 15. Range of motion causes her groin pain. Stinchfield maneuver causes her groin pain. She has normal abduction strength lateral position no tenderness over the greater trochanter. Skin around the hip and groin crease are normal. She has diminished light touch sensation on the plantar aspect of the ball of her foot and toes which is chronic. 2+ dorsalis pedis and posterior tibial artery pulse palpable. No edema in either lower extremity. Resp: Auscultation: clear to auscultation bilaterally Cardio: Rate: regular rate Rhythm: regular rhythm Assessment and Plan Assessment and plan (1) Osteoarthritis of left hip: Qualifiers: Osteoarthritis type: unspecified Qualified Code(s): M16.12 - Unilateral primary osteoarthritis, left hip Code(s): M16.12 - Unilateral primary osteoarthritis, left hip Status: Acute Plan 74-year-old female who has advanced osteoarthritis in both hips. At this point the left which right. She is ready proceed with total hip arthroplasty. Surgical procedures well as risks complications were discussed in detail all questions were answered we will proceed. Patient will stop her diclofenac and any other aspirin ibuprofen products 1 prior to surgery. She will see her primary care doctor for pre-surgical clearance. Patient's hemoglobin is 13.5 platelets 185. Chem panel is all within normal limits creatinine 0.68. Nasal swab did grow oxacillin sensitive Staph aureus and she has been Decolonizing.
[2025-05-20] VITALS (14 sets, daily range): BP systolic 91–154; BP diastolic 54–95; PULSE 63–88; RESP 16–18; TEMP 36.1–37.7; O2SAT 98–100; BMI 23.1; BMI 25.7
--- NOTE | ~2025-05-20 | XR_ITS ---
XR hip LT 1V w AP pelvis Ordering provider: Art Wang MD History: . LEFT ALDO ANTERIOR APPROACH POST-OP . Comparison: May 12, 2025 FINDINGS: BONES: No acute fracture or dislocation. HIP JOINT SPACES: Left hip arthroplasty. Severe right hip osteoarthritic changes. PUBIC SYMPHYSIS: Normal. SOFT TISSUES: Postoperative changes around the left trochanters. IMPRESSION: No acute osseous abnormality pelvis. Left hip arthroplasty with postoperative changes. Severe right hip osteoarthritic changes. Reviewed, dictated and finalized at location A.
--- NOTE | ~2025-05-20 | XR_ITS ---
EXAMINATION: XR surgery orthopedic DATE: 05/20/2025 11:31 INDICATION: Left total hip arthroplasty TECHNIQUE: 2 fluoroscopic images of the left hip were obtained during procedure performed by Dr. Kaylee roberts. Radiologist was not present for the imaging or procedure. The amount of fluoroscopy time used du ring this procedure was 1.0 minutes. Total DAP was 0.29 mGym^2. COMPARISON: 05/12/2025 FINDINGS: Images demonstrate placement of a noncemented left total hip arthroplasty. The acetabular component i s affixed with at least a single screw. No fractures identified. Expected lucent soft tissue gas at t he operative bed. A catheter likely external to the patient projects over the left hip. IMPRESSION: 1. Expected appearance during left total hip arthroplasty. See procedure note for further detail. Reviewed, dictated and finalized at location A. IMPRESSION: 1. Expected appearance during left total hip arthroplasty. See procedure note f or further detail.
[2025-05-20] MEDS: LACTATED RINGERS 1,000 ML 30 ML IV CONT ×2 (06:30→11:34)
[2025-05-20] MEDS: TRANEXAMIC ACID 1,000MG/ISO100 1,000 MG/100 ML BAG 200 MG IVPB (06:45)
[2025-05-20] MEDS: VANCOMYCIN 1,000 MG/NS 250 ML BAG 250 MG IVPB (06:45)
[2025-05-20] MEDS: ACETAMINOPHEN 500 MG TABLET 1000 MG PO (07:10)
--- NOTE | 2025-05-20 07:14 | P.PNAN_ITS ---
Anes - Initial Pre Proc Eval Procedure: Operation Date: 05/20/25 07:30 Proposed Procedures p Left Total Hip Arthroplasty Anterior Approach - Art Wang MD Date/Time: 05/20/25 07:14 Surgeon: Art Wang MD Pre Op Diagnosis: oa left hip Patient Data Age: 74 Gender: F Height: 1.68 m Weight: 65.1 kg Last Vital Signs Temp 99.3 F 05/20/25 07:05 Pulse 74 05/20/25 07:05 Resp 18 04/29/25 10:54 BP 154/74 H 05/20/25 07:05 Pulse Ox 100 05/20/25 07:05 O2 Del Method Room Air 05/20/25 07:05 Allergies Allergy/AdvReac Type Severity Reaction Status Date / Time aspirin Allergy Unknown Unknown Verified 05/20/25 07:03 Home Medications ?Medication ?Instructions ?Recorded ?Confirmed ?Type cholecalciferol (vitamin D3) 50 2,000 unit PO DAILY 08/21/23 05/20/25 History mcg (2,000 unit) capsule magnesium oxide 500 mg PO BID 08/21/23 05/20/25 History diclofenac sodium 75 mg 75 mg PO BID PRN pain #60 tabs 11/26/24 05/20/25 Rx tablet,delayed release cyanocobalamin (vitamin B-12) 2,500 mcg PO DAILY 12/30/24 05/20/25 History 1,000 mcg tablet amlodipine 5 mg tablet 5 mg PO DAILY #90 tabs 02/23/25 05/20/25 Rx benazepril 40 mg tablet 40 mg PO DAILY #90 tabs 02/23/25 05/20/25 Rx tramadol 50 mg tablet 50 mg PO Q6H PRN pain #60 tabs 04/23/25 05/20/25 Rx mupirocin 2 % topical ointment 1 applic topical BID #15 grams 05/04/25 Rx mupirocin 2 % topical ointment 1 applic topical BID #22 grams 05/04/25 Rx Laboratory Tests 05/20/25 06:56 Blood Type Pending Antibody Screen Pending Patient hx anesthesia problems: none Family hx anesthesia problems: none Results Review: All pre-operative results and documents have been reviewed as part of the pre- operative evaluation. [facility] Past Medical History Medical History MRSA (methicillin resistant Staphylococcus aureus) carrier BMI 22.0-22.9, adult At moderate risk for fall (~08/21/23) Overweight (BMI 25.0-29.9) Chronic hip pain, bilateral X-ray of the hips 02/06/2023 revealed advanced osteoarthritis bilaterally. Chronic low back pain with bilateral sciatica X-ray of the lumbar spine on 02/06/2023 reveals mild facet arthropathy L3 through S1 with mild degenerative disc disease. Anterior wedging of L4 vertebrae. MRI of the lumbar spine on 05/30/2023 reveals severe degenerative disc disease at L4-L5 and L5-S1 with severe central spinal stenosis at L4-L5 and L5-S1 with severe right neuroforaminal narrowing at L4-L5 Chronic low back pain with right-sided sciatica BMI 24.0-24.9, adult BMI 23.0-23.9, adult Polyp of colon colon polyp 04/14/2013. Repeat colonoscopy Mar, 2018 normal Seasonal allergic rhinitis COVID-19 (~12/23/20) Osteoarthritis involving multiple joints on both sides of body Chronic constipation stable with magnesium twice daily Chronic left-sided low back pain without sciatica Left hip pain Surgical History Surgical History Status post lumbar surgery History of tubal ligation History of cholecystectomy Family History Family History Mother Father Family history of cardiovascular disease, Onset Age: 80 Grandparent Family history of cardiovascular disease, Onset Age: 75 Family history of malignant neoplasm of bone, Onset Age: 79 Family history of malignant neoplasm of urinary bladder, Onset Age: 82 Sibling Family history of cardiovascular disease Family history of malignant neoplasm Carcinoma of colon Social History Social History Smoking packs per day: 1 Smoking cigarettes per day: 20.0 Years smoked: 15 Smoking pack-years: 15.00 Smoking status: Former smoker Second hand tobacco smoke exposure: No Smoking end date: 11/25/79 Additional smoking assessment comments: DENIES ANY FORM OF TOBACCO USE Alcohol intake: current Alcohol use details: rarely Substance use: never Substance use type: does not use Current Housing: Decline to Answer Concerned About Future Housing: Decline to Answer Difficulty Paying Gas/Electric Bills: Decline to Answer Difficulty Paying for Meds: Decline to Answer Currently Unemployed: Decline to Answer Education: Decline to Answer Difficulty w/ Childcare or Family Care: Decline to Answer Living arrangements: with family Spiritual care concerns: No Anes - Eval Final PreProcedure Day of Procedure 05/20/25 07:14 Patient weight: normal Lungs: normal air movement Airway: Mallampati scale class II and special considerations (Upper and lower partials. ) Last oral intake: >/= 8 hours ASA classification: II Emergent: no Anesthetic plan: proceed Anesthesia type and monitoring: general ETT and standard monitoring Results Review: All pre-operative results and documents have been reviewed as part of the pre- operative evaluation. HTN, overall good health w swimming in the ocean, limited by hip pain of recent. Informed Consent: The patient's anesthetic plan and its attendant risks and benefits were discussed with the patient/family/POA. Questions were solicited and answers provided to the satisfaction of the patient/family/POA.
--- NOTE | 2025-05-20 07:15 | WPDHPUPDATE1 ---
History and Physical Update Update Date/Time: 05/20/25 07:15 History and Physical has been reviewed, including an updated exam of the patient. There are NO changes in the patient's condition. Risks, benefits, and alternatives have been discussed and questions answered. Patient agrees to proceed with procedure.
[2025-05-20] MEDS: ceFAZolin 2 GM/D5W 50 ML 2 GM/50 ML BAG IVPB ×2 (07:42→18:06)
[2025-05-20] MEDS: SODIUM CHLORIDE 0.9% IV 37.7 ML, MORPHINE SULFATE INJ (*CRX) 2 MG, ROPivacaine HCL 1% 2... INFILTRATE (08:27)
[2025-05-20] MEDS: TRANEXAMIC ACID 1,000 MG/10 ML AMPUL 1000 MG IV PUSH (10:58)
[2025-05-20] MEDS: ceFAZolin SODIUM 1 GM VIAL 2 GM IV PUSH (10:58)
--- NOTE | 2025-05-20 11:32 | W.PM.PROC2 ---
Procedure Note - Detailed Date of Procedure 05/20/25 Pre-op Diagnosis oa left hip Post-op Diagnosis Same Procedure Performed Left total hip arthroplasty direct anterior approach Surgeon Art Wang MD Exceptional Needs Teacher Shawn Schmid PA-C Anesthesia General Description of Procedure Patient was brought to the operating room and general anesthesia was administered. Padding was applied to both feet and boots applied SCDs were applied to the calves and running during the procedure. [facility] and the left hip prepped draped usual fashion. She received 2 g of Ancef weight based vancomycin 1 g of TXA preoperatively. A 10 cm longitudinal incision was made starting 3 cm lateral to the ASIS. Dissection was carried down to the fascia over the tensor fascia joselyn which was longitudinally incised over its midportion. Interval between can tensor fascia joselyn and rectus femoris developed and crossing branches of ascending lateral femoral circumflex vessels were ligated with suture divided. Retractor was placed anteromedial to the capsule the hip abducted internally rotated and the gluteus minimus which was mostly fatty it is deeper portions, was elevated off the lateral capsule. Inverted T capsulotomy was performed a femoral neck osteotomy made according to preoperative templating. The femoral head was extremely arthritic. The the acetabulum was exposed. Minimal trimming of superolateral acetabular osteophyte was performed at this time to assist with exposure to the acetabulum. The residual labrum was excised. Since she had a planned neck cut that was rather low we took an intraoperative x-ray to make sure that we had resected the femoral neck as doing so would optimize exposure of the acetabulum and we saw that we could remove another 3 or 4 mm of femoral neck which was done at this time. The acetabulum was exposed and we medialized the medial wall under fluoroscopic guidance with a 44 Reamer. We gradually reamed up to the 51 mm Reamer which gave circumferential contact at the equator with the anterior acetabulum posterior acetabular rims. The 52 trial fit snugly. We chose the 52 pinnacle cup which was impacted at 40? of abduction and appropriate anteversion and this achieved very good Press-Fit. The cancellous bone was a little bit soft in the acetabulum. A single screw was placed into the superior ilium which obtained excellent purchase. Thirty-six inner diameter liner was fully seated without difficulty. The table hook was placed around the femur leg externally rotated extended. We did not have adequate exposure of the proximal femur until we incised between the piriformis and conjoined tendon lateral to the femoral neck osteotomy which gave enough mobilization to have adequate exposure the proximal femur without extending the interval release or allowing the piriformis to flip. The intramedullary canal was suctioned out. We broached up to a size 5 and took an intraoperative x-ray and found that the level of the broach was appropriate and we saw that we had room to go up in size and we calcar planed and found that the 6 broach still had torsional instability. The 7 broach seated to the proper level without difficulty but had excellent torsional stability. We trialed with the increased offset 1.5 neck which had appropriate soft tissue tension and under fluoroscopic evaluation showed that we had increased the leg length approximately 5 mm which was consistent with our preoperative plan as she was very short on this side and the other side is shortened due to severe wear. The +5 head was excessively tight. Final calcar planing was performed and the size 7 Actis high offset stem was seated fully without complication no cracks in the calcar excellent torsional stability. We trialed 1 more time 1.5 was appropriate and the real 1.5 mm x 36 mm ceramic head was impacted on the clean and dried trunnion. After thorough irrigation again with Ancef solution hip was reduced and soft tissue tension and stability deemed appropriate. Final fluoroscopic image showed no radiographic complication. The superior limb of the capsulotomy was repaired with 2. Vicryl suture. Local anesthetic cocktail was injected into the periarticular soft tissues. The fascia was closed with running 1. Vicryl drain placed deep in the subcu skin closed with 2 subcutaneous Vicryl and glue. EBL was estimated at 300 cc collected by Cell Saver we estimated total blood loss 350 and 125 was given back as Cell Saver blood. Two additional g of Ancef and 1 g of TXA given time wound closure. I felt bone quality was satisfactory to allow weight-bearing as tolerated. She was transferred postop recovery room in stable condition no known complications. [facility] Billing Surgery - Charge Forward: Surgery Billing (Left total hip replacement)
--- NOTE | 2025-05-20 11:41 | PM.OP ---
Procedure Note - Brief Procedure Note - Brief Date of procedure: 05/20/25 oa left hip Procedure performed: left anterior total hip arthroplasty Surgeon: ROBI Jeffries Findings: 74-year-old female underwent left anterior total hip arthroplasty on 05/20. I was involved in the procedure including positioning the patient on the OR table in 1st assisting through the time surgery. Total time spent was 3-1/2 hours
[2025-05-20] MEDS: fentaNYL CITRATE INJ (*CRX) 100 MCG/2 ML VIAL 25 MCG IV PUSH ×7 (11:52→12:46)
[2025-05-20] MEDS: ACETAMINOPHEN 325 MG TABLET 650 MG PO ×2 (17:46→20:42)
[2025-05-20] MEDS: SODIUM CHLORIDE 0.9% IV 1,000 ML 125 ML IV CONT (17:47)
[2025-05-20] MEDS: oxyCODONE HCL (*CRX) 5 MG TAB IR PO ×2 (17:47→20:42)
[2025-05-20] MEDS: SENNA/DOCUSATE SODIUM TABLET 2 TAB PO (17:47)
[2025-05-20] MEDS: ONDANSETRON INJ 4 MG/2 ML VIAL IV PUSH (18:06)
--- NOTE | 2025-05-20 18:30 | PM.IMCN ---
Assessment and Plan Assessment and plan (1) Essential (primary) hypertension: Code(s): I10 - Essential (primary) hypertension Status: Chronic Assessment and Plan: Well controlled blood pressures with systolic ranging in the 120s and diastolic in the 70s. Continue home medications of amlodipine 5 mg daily and benazepril 40 mg daily Trend and monitor (2) Vitamin B12 deficiency anemia, unspecified: Qualifiers: Vitamin B12 deficiency anemia type: unspecified B12 deficiency Qualified Code(s): D51.9 - Vitamin B12 deficiency anemia, unspecified Code(s): D51.9 - Vitamin B12 deficiency anemia, unspecified Status: Chronic Assessment and Plan: Continue cyanocobalamin 2500 mcg by mouth daily (3) Vitamin D deficiency, unspecified: Code(s): E55.9 - Vitamin D deficiency, unspecified Status: Chronic Assessment and Plan: Continue cholecalciferol 2000 units by mouth daily (4) Status post low friction arthroplasty of hip: Code(s): Z96.649 - Presence of unspecified artificial hip joint Status: Acute Assessment and Plan: Management per surgery as she is POD #0 Pain control per Ortho preference. HPI Date of Consult Consult date: 05/20/25 Requesting Physician: Art Wang MD Primary Care Provider: [place] Blood MD Consult Narrative Narrative: Josephine Guerrier is a 74 year old female who is status post left total hip arthroplasty by Dr. Wang. Patient has past medical history of MRSA colonization, osteoarthritis, vitamin-D deficiency, vitamin B12 deficiency and hypertension. We are consulted by Orthopedic surgery for medical management during her hospitalization. Patient is currently without any acute complaints or symptoms to report at this time. Review of Systems Review of Systems: All systems reviewed & are unremarkable except as noted in HPI and below [facility], LAT[facility] Past Medical History Medical History (Updated 05/20/25 @ 18:36 by Zee Varma APN-Nora) MRSA (methicillin resistant Staphylococcus aureus) carrier BMI 22.0-22.9, adult At moderate risk for fall (~08/21/23) Overweight (BMI 25.0-29.9) Chronic hip pain, bilateral X-ray of the hips 02/06/2023 revealed advanced osteoarthritis bilaterally. Chronic low back pain with bilateral sciatica X-ray of the lumbar spine on 02/06/2023 reveals mild facet arthropathy L3 through S1 with mild degenerative disc disease. Anterior wedging of L4 vertebrae. MRI of the lumbar spine on 05/30/2023 reveals severe degenerative disc disease at L4-L5 and L5-S1 with severe central spinal stenosis at L4-L5 and L5-S1 with severe right neuroforaminal narrowing at L4-L5 Chronic low back pain with right-sided sciatica BMI 24.0-24.9, adult BMI 23.0-23.9, adult Polyp of colon colon polyp 04/14/2013. Repeat colonoscopy Mar, 2018 normal Seasonal allergic rhinitis COVID-19 (~12/23/20) Osteoarthritis involving multiple joints on both sides of body Chronic constipation stable with magnesium twice daily Chronic left-sided low back pain without sciatica Left hip pain Surgical History Surgical History (Updated 05/20/25 @ 18:34 by GLENDA Oconnor) Status post low friction arthroplasty of hip Status post lumbar surgery History of tubal ligation History of cholecystectomy Family History Family History Mother Father Family history of cardiovascular disease, Onset Age: 80 Grandparent Family history of cardiovascular disease, Onset Age: 75 Family history of malignant neoplasm of bone, Onset Age: 79 Family history of malignant neoplasm of urinary bladder, Onset Age: 82 Sibling Family history of cardiovascular disease Family history of malignant neoplasm Carcinoma of colon Social History Social History Smoking packs per day: 1 Smoking cigarettes per day: 20.0 Years smoked: 15 Smoking pack-years: 15.00 Smoking status: Former smoker Second hand tobacco smoke exposure: No Additional smoking assessment comments: DENIES ANY FORM OF TOBACCO USE Alcohol intake: current Alcohol use details: rarely Substance use: never Substance use type: does not use Do You Feel Safe in your Home?: Yes Lack of Transportation: No Lack of Food: Never True Current Housing: Decline to Answer Concerned About Future Housing: Decline to Answer Difficulty Paying Gas/Electric Bills: Decline to Answer Difficulty Paying for Meds: Decline to Answer Currently Unemployed: Decline to Answer Education: Decline to Answer Difficulty w/ Childcare or Family Care: Decline to Answer Living arrangements: with family Spiritual care concerns: No Meds Home Medications and Allergies Home Medications ?Medication ?Instructions ?Recorded ?Confirmed ?Type cholecalciferol (vitamin D3) 50 2,000 unit PO DAILY 08/21/23 05/20/25 History mcg (2,000 unit) capsule magnesium oxide 500 mg PO BID 08/21/23 05/20/25 History diclofenac sodium 75 mg 75 mg PO BID PRN pain #60 tabs 11/26/24 05/20/25 Rx tablet,delayed release cyanocobalamin (vitamin B-12) 2,500 mcg PO DAILY 12/30/24 05/20/25 History 1,000 mcg tablet amlodipine 5 mg tablet 5 mg PO DAILY #90 tabs 02/23/25 05/20/25 Rx benazepril 40 mg tablet 40 mg PO DAILY #90 tabs 02/23/25 05/20/25 Rx tramadol 50 mg tablet 50 mg PO Q6H PRN pain #60 tabs 04/23/25 05/20/25 Rx Allergies Allergy/AdvReac Type Severity Reaction Status Date / Time aspirin Allergy Unknown Unknown Verified 05/20/25 07:03 Vital Signs Vital Signs - 24 hr 05/20/25 07:05 05/20/25 11:34 05/20/25 11:45 Temperature 99.3 F 97.2 F L Pulse Rate 74 73 64 Respiratory Rate 16 16 Blood Pressure 154/74 H 91/54 L 117/67 Pulse Oximetry 100 100 100 Oxygen Delivery Room Air Simple Face Mask Simple Face Mask Oxygen Flow Rate 8 8 05/20/25 12:00 05/20/25 12:15 05/20/25 12:30 Temperature Pulse Rate 68 63 66 Respiratory Rate 16 18 16 Blood Pressure 117/67 117/67 125/69 Pulse Oximetry 100 99 99 Oxygen Delivery Simple Face Mask Room Air Room Air Oxygen Flow Rate 8 05/20/25 12:45 05/20/25 13:00 05/20/25 13:30 Temperature 97.0 F L Pulse Rate 73 65 75 Respiratory Rate 16 18 16 Blood Pressure 123/66 131/72 131/70 Pulse Oximetry 99 98 100 Oxygen Delivery Room Air Room Air Room Air Oxygen Flow Rate 05/20/25 14:00 05/20/25 14:45 05/20/25 15:00 Temperature 97.2 F L 97.6 F Pulse Rate 72 70 71 Respiratory Rate 16 16 16 Blood Pressure 118/70 141/95 H 129/72 Pulse Oximetry 100 99 100 Oxygen Delivery Room Air Oxygen Flow Rate 05/20/25 15:30 Temperature 98.2 F Pulse Rate 73 Respiratory Rate 16 Blood Pressure 127/74 Pulse Oximetry 99 Oxygen Delivery Oxygen Flow Rate Exam Const: General: comfortable and no acute distress Other: Attempting to ambulate at the time of my assessment. Eyes: General: appearance normal, both eyes and all related structures Sclera: sclerae normal Neck: Neck: supple and no JVD Resp: Effort & Inspection: normal respiratory effort Cardio: Rate: regular rate Rhythm: regular rhythm Heart sounds: no gallops, no murmurs and no rubs GI: GI Palp: Yes Soft to palpation and No Tenderness to palpation present (GI) Auscultation: normal bowel sounds Skin: General skin exam: normal color and no rashes or lesions noted Wounds: wounds noted (Surgical wounds left hip clean dry intact) Neuro: General: No gait normal (Postoperative using walker for ambulation.) Speech: normal speech Motor exam (neuro): 5/5 motor strength present throughout and Normal motor muscle tone present throughout Sensory Exam: normal sensation Extrem: General: normal exam except as noted, no edema and no pedal edema Other: Operative left lower extremity with mild edema Psych: Mental Status: mental status grossly normal Quality VTE Prophylaxis VTE prophylaxis: pharmacologic ordered Hospitalist MIPS Advance Care Plan I have confirmed that the patient's Advanced Care Plan is present, code status is documented, or surrogate decision maker is listed in patient medical record.: Yes Medication Reconciliation I have utilized all available resources to obtain, update and review the patients current medications (includes all prescriptions, OTC, herbals, cannabis, and nutritional supplements).: Yes
[2025-05-20] MEDS: VANCOMYCIN 1,000 MG/NS 250 ML 1,000 MG/250 ML BAG 250 MG IVPB (20:42)
[2025-05-20] MEDS: FAMOTIDINE 20 MG TABLET PO (20:42)
[2025-05-21 00:13] VITALS: BP 136/71; PULSE 77; RESP 16; TEMP 37.1; O2SAT 99
[2025-05-21] MEDS: ceFAZolin 2 GM/D5W 50 ML 2 GM/50 ML BAG IVPB ×2 (00:43→09:14)
[2025-05-21] MEDS: SODIUM CHLORIDE 0.9% IV 1,000 ML 125 ML IV CONT ×2 (00:43→06:01)
--- NOTE | 2025-05-21 00:57 | PC.NURSE ---
informed patient that MD has ice packs due to be placed on incision site at 0200, she refused. She will do it at 0800
--- NOTE | 2025-05-21 05:15 | PC.NURSE ---
Addendum entered by Grisel Figueroa RN 05/21/25 05:17: spoke with Nathaly regarding temp of 100.2, not concerned. Will recheck with morning VS. Original Note: Patient refusing pain meds overnight. Did not want to be wakened for pain meds. Will try again at 0500
[2025-05-21 05:52] VITALS: BP 124/73; PULSE 94; RESP 16; TEMP 37.9; O2SAT 98
[2025-05-21] MEDS: ACETAMINOPHEN 325 MG TABLET 650 MG PO ×2 (06:00→09:06)
[2025-05-21] MEDS: oxyCODONE HCL (*CRX) 5 MG TAB IR PO (06:00)
[2025-05-21] MEDS: VANCOMYCIN 1,000 MG/NS 250 ML 1,000 MG/250 ML BAG 250 MG IVPB (06:01)
[2025-05-21 07:27] LABS: Basophils Percent Auto 0.2 % (0.2-1.2); Eosinophils Percent Auto 0.2 % (0-4.4); Hematocrit 29.3 % (37.0-47.0); Hemoglobin 9.5 g/dL (12.0-15.0); Immature Granulocyte Absolute 0.04 K/mm3 (0.00-0.031); Immature Granulocyte Percent A 0.4 % (0-0.5); Lymphocytes Absolute Auto 0.86 K/mm3 (0.9-3.2); Lymphocytes Percent Auto 8.8 % (18.3-44.2); Mean Corpuscular HGB Conc 32.4 g/dl (32-36); Mean Corpuscular Hemoglobin 30.1 pg (26-34); Mean Corpuscular Volume 92.7 fl (80-100); Mean Platelet Volume 11.1 fl (7.4-10.4); Monocytes Absolute Auto 0.5 K/mm3 (0.1-0.6); Monocytes Percent Auto 4.6 % (2.6-8.5); Neutrophils Absolute Auto 8.4 K/mm3 (1.3-6.7); Neutrophils Percent Auto 85.8 % (45.5-73.1); Platelet Count Result 154 k/mm3 (150-375); Red Blood Count 3.16 M/mm3 (4.2-5.4); Red Cell Distribution Width 12.3 % (11.5-14.5); White Blood Count 9.8 K/mm3 (4.5-10.0)
--- NOTE | 2025-05-21 07:38 | P.PNOP_ITS ---
Subjective Subjective Date/Time Seen: 05/21/25 07:38 Interval history: Postop day 1 patient is alert. She is afebrile vital signs are stable. Morning CBCs noted. Patient's drain is out dressing has been changed. She has very mild swelling in the proximal thigh. Neurovascularly she is intact. Pain overall is well controlled. She was having some nausea last night. This could be due to anesthesia or the narcotics. Patient does not feel she wishes to take the oxycodone and is comfortable with tramadol as well as the Tylenol. She was on this combination before surgery and wishes to just continue with that. Will change her narcotics out to schedule tramadol. Patient has been up multiple times overnight in the restroom and urinating well. Overall patient is doing well and is anxious to go home. We will have her work with therapy this morning and once IV antibiotics have been completed and she feels she is doing well with therapy and having no symptoms, she will be discharged home late this morning. Objective Data Vital Signs Vital Signs: Vital Signs - 24 hr 05/20/25 11:34 05/20/25 11:45 05/20/25 12:00 Temperature 97.2 F L Pulse Rate 73 64 68 Respiratory Rate 16 16 16 Blood Pressure 91/54 L 117/67 117/67 Pulse Oximetry 100 100 100 Oxygen Delivery Simple Face Mask Simple Face Mask Simple Face Mask Oxygen Flow Rate 8 8 8 05/20/25 12:15 05/20/25 12:30 05/20/25 12:45 Temperature Pulse Rate 63 66 73 Respiratory Rate 18 16 16 Blood Pressure 117/67 125/69 123/66 Pulse Oximetry 99 99 99 Oxygen Delivery Room Air Room Air Room Air Oxygen Flow Rate 05/20/25 13:00 05/20/25 13:30 05/20/25 14:00 Temperature 97.0 F L Pulse Rate 65 75 72 Respiratory Rate 18 16 16 Blood Pressure 131/72 131/70 118/70 Pulse Oximetry 98 100 100 Oxygen Delivery Room Air Room Air Room Air Oxygen Flow Rate 05/20/25 14:45 05/20/25 15:00 05/20/25 15:30 Temperature 97.2 F L 97.6 F 98.2 F Pulse Rate 70 71 73 Respiratory Rate 16 16 16 Blood Pressure 141/95 H 129/72 127/74 Pulse Oximetry 99 100 99 Oxygen Delivery Oxygen Flow Rate 05/20/25 20:13 05/21/25 00:13 05/21/25 01:03 Temperature 99.9 F H 98.8 F Pulse Rate 88 77 Respiratory Rate 16 16 Blood Pressure 128/66 136/71 Pulse Oximetry 98 99 Oxygen Delivery Room Air Oxygen Flow Rate 05/21/25 05:52 Temperature 100.2 F H Pulse Rate 94 Respiratory Rate 16 Blood Pressure 124/73 Pulse Oximetry 98 Oxygen Delivery Oxygen Flow Rate Intake/Output Intake/Output: Intake & Output 05/18/25 05/19/25 05/20/25 05/21/25 23:59 23:59 23:59 23:59 Intake Total 1820 1529.2 Output Total 110 Balance 1820 1419.2 Meds/Results Medications: Active Medications Generic Name Dose Route Start Last Admin Trade Name Freq PRN Reason Stop Dose Admin Acetaminophen 650 mg 05/20/25 17:00 05/21/25 06:00 Acetaminophen 325 Mg Tablet PO 650 mg Q4HR BIRGIT Administration Amlodipine Besylate 5 mg 05/21/25 09:00 Amlodipine Besylate 5 Mg Tablet PO DAILY BIRGIT Apixaban 2.5 mg 05/21/25 09:00 Apixaban 2.5 Mg Tablet PO 06/24/25 21:01 Q12HR BIRGIT Celecoxib 200 mg 05/21/25 09:00 Celecoxib 200 Mg Capsule PO DAILY BIRGIT Cyanocobalamin 2,500 mcg 05/21/25 09:00 Cyanocobalamin 500 Mcg Tablet PO DAILY BIRGIT Doxycycline Hyclate 100 mg 05/21/25 09:00 Doxycycline Hyclate 100 Mg Tablet PO Q12HR BIRGIT Famotidine 20 mg 05/20/25 21:00 05/20/25 20:42 Famotidine 20 Mg Tablet PO 20 mg Q12HR BIRGIT Administration Sodium Chloride 1,000 mls @ 125 mls/hr 05/20/25 14:28 05/21/25 06:01 Normal Saline Iv IV CONT 125 mls/hr .Q8H BIRGIT Administration Cefazolin Sodium 2 gm in 50 mls @ 100 mls/hr 05/20/25 16:00 05/21/25 00:43 Ancef 2 Gm/D5w 50 Ml IVPB 05/21/25 08:29 100 mls/hr Q8H BIRGIT Administration Vancomycin HCl 1,000 mg in 250 mls @ 250 mls/hr 05/20/25 19:00 05/21/25 06:01 Vancomycin 1,000 Mg/Ns 250 Ml IVPB 05/21/25 07:59 250 mls/hr Q12H BIRGIT Administration Morphine Sulfate 2 mg 05/20/25 14:28 Morphine Sulfate (*Crx) 2 Mg/Ml Inj IV PUSH Q2H PRN Breakthrough Pain Rated 4-6 or NPO Naloxone HCl 0.1 mg 05/20/25 14:28 Naloxone Hcl 0.4 Mg/Ml Vial IV PUSH Q2M PRN Opiate Reversal Ondansetron HCl 4 mg 05/20/25 14:28 05/20/25 18:06 Ondansetron Inj 4 Mg/2 Ml Vial IV PUSH 4 mg Q4H PRN Administration Nausea And Vomiting Oxycodone HCl 5 mg 05/20/25 17:00 05/21/25 06:00 Oxycodone Hcl (*Crx) 5 Mg Tab Ir PO 5 mg Q4HR BIRGIT Administration Oxycodone HCl 5 mg 05/20/25 14:28 Oxycodone Hcl (*Crx) 5 Mg Tab Ir PO Q4H PRN Pain Rated 7-10 Polyethylene Glycol 17 gm 05/21/25 09:00 Polyethylene Glycol 3350 17 Gm Powd.Pack PO QAM BIRGIT Senna/Docusate Sodium 2 tab 05/20/25 17:00 05/20/25 17:47 Senna/Docusate Sodium Tablet PO 2 tab BID BIRGIT Administration Vitamin D 50 mcg 05/21/25 09:00 Cholecalciferol (Vitamin D3) 25 Mcg (1,000 Units) Tablet PO DAILY [facility] Radiology Results: ITS Impressions Intraoperative X-Ray 05/20/25 11:38 IMPRESSION: 1. Expected appearance during left total hip arthroplasty. See procedure note for further detail. Hip/Pelvis X-Ray 05/20/25 11:40 IMPRESSION: No acute osseous abnormality pelvis. Left hip arthroplasty with postoperative changes. Severe right hip osteoarthritic changes. Labs Labs: Laboratory Results - last 24 hr 05/20/25 05/21/25 06:56 06:41 WBC 9.8 RBC 3.16 L Hgb 9.5 L D Hct 29.3 L MCV 92.7 MCH 30.1 MCHC 32.4 RDW 12.3 Plt Count 154 MPV 11.1 H Immature Gran % (Auto) 0.4 Neut % (Auto) 85.8 H Lymph % (Auto) 8.8 L [place] % (Auto) 4.6 Eos % (Auto) 0.2 Baso % (Auto) 0.2 Lymph # (Auto) 0.86 L [place] # (Auto) 0.5 Eos # (Auto) 0.0 Baso # (Auto) 0.0 Abs Immat Gran (auto) 0.04 H Absolute Neuts (auto) 8.4 H Absolute Nucleated RBC 0.000 Nucleated RBC % 0.0 Antibody Screen Negative
[2025-05-21 08:00] VITALS: O2SAT 98
[2025-05-21 08:00] LABS: Anion Gap 8 mmol/L (4-12); Blood Urea Nitrogen 9 mg/dL (7-17); Calcium 8.4 mg/dL (8.4-10.2); Carbon Dioxide 25 mmol/L (22-30); Chloride 105 mmol/L (98-107); Estimated CRCL calculation 58 ml/min; Estimated Glomerular Filt Rate > 60; Glucose 165 mg/dL (65-110); Sodium 138 mmol/L (137-145)
[2025-05-21 08:13] VITALS: BP 126/87; PULSE 81; RESP 16; TEMP 36.7; O2SAT 99
[2025-05-21] MEDS: amLODIPine BESYLATE 5 MG TABLET PO (09:07)
[2025-05-21] MEDS: CYANOCOBALAMIN 500 MCG TABLET 2500 MCG PO (09:07)
[2025-05-21] MEDS: CHOLECALCIFEROL (VITAMIN D3) 25 MCG (1,000 UNITS) TABLET 50 MCG PO (09:07)
[2025-05-21] MEDS: APIXABAN 2.5 MG TABLET PO (09:07)
[2025-05-21] MEDS: CELECOXIB 200 MG CAPSULE PO (09:08)
[2025-05-21] MEDS: FAMOTIDINE 20 MG TABLET PO (09:08)
[2025-05-21] MEDS: DOXYCYCLINE HYCLATE 100 MG TABLET PO (09:08)
--- NOTE | 2025-05-21 11:04 | P.PNIM_ITS ---
Progress Note: A&P Assessment and Plan (1) Essential (primary) hypertension: Code(s): I10 - Essential (primary) hypertension Status: Chronic (2) Mixed hyperlipidemia: Code(s): E78.2 - Mixed hyperlipidemia Status: Acute (3) Primary osteoarthritis of hips, bilateral: Code(s): M16.0 - Bilateral primary osteoarthritis of hip Status: Acute Plan (1) Essential (primary) hypertension: Code(s): I10 - Essential (primary) hypertension Status: Chronic Assessment and Plan: * Well controlled blood pressures with systolic ranging in the 120s and diastolic in the 70s. * Continue home medications of amlodipine 5 mg daily and benazepril 40 mg daily * Trend and monitor * (2) Vitamin B12 deficiency anemia, unspecified: Qualifiers: Vitamin B12 deficiency anemia type: unspecified B12 deficiency Qualified Code(s): D51.9 - Vitamin B12 deficiency anemia, unspecified Code(s): D51.9 - Vitamin B12 deficiency anemia, unspecified Status: Chronic Assessment and Plan: * Continue cyanocobalamin 2500 mcg by mouth daily (3) Vitamin D deficiency, unspecified: Code(s): E55.9 - Vitamin D deficiency, unspecified Status: Chronic Assessment and Plan: * Continue cholecalciferol 2000 units by mouth daily (4) Left hip arthroplasty with postoperative D1 MANAGEMENT PER ORTHOPEDIC SURGEON Fever overnight No sign infection White blood cell within normal limit Possible reaction to surgical procedure Postop anemia Hemoglobin stable Blood pressure stable Patient is okay for discharge. Patient needs to see primary care doctor in 1 week Subjective Date/time seen: 05/21/25 11:04 Interval history: I saw examined patient today in presents of patient's physical therapist. Patient ambulates without difficulty. Patient denies headache, lightheadedness, chest pain, cough, shortness breath, the abdomen pain nausea vomiting diarrhea dysuria. Patient had episode fever, white blood cell within normal limit, Hemoglobin 9.5 Chemistry unremarkable Exam Narrative: GENERAL: Pleasant, in no acute distress. Well-nourished. - EYES: EOMI. Anicteric. - HENT: Moist mucous membranes. - LUNGS: Clear to auscultation bilateral ly, no wheezing, rhonchi, or rales. - CARDIOVASCULAR: Regular rate and rhyth m. No murmur. No JVD. - ABDOMEN: Soft, non-tender and non-dist ended. No palpable masses. - EXTREMITIES: No edema. Peripheral puls es 2+. Non-tender. Left hip surgical wound is dry and clean - NEUROLOGIC: No focal neurological defi cits. CN II-XII grossly intact. - PSYCHIATRIC: Awake, Alert and oriented x 3. Appropriate mood and affect. - SKIN: No rashes or lesions. Warm. - LYMPH: No cervical lymphadenopathy. Objective Data Vital Signs Vital Signs: Vital Signs - 24 hr 05/20/25 11:34 05/20/25 11:45 05/20/25 12:00 Temperature 97.2 F L Pulse Rate 73 64 68 Respiratory Rate 16 16 16 Blood Pressure 91/54 L 117/67 117/67 Pulse Oximetry 100 100 100 Oxygen Delivery Simple Face Mask Simple Face Mask Simple Face Mask Oxygen Flow Rate 8 8 8 05/20/25 12:15 05/20/25 12:30 05/20/25 12:45 Temperature Pulse Rate 63 66 73 Respiratory Rate 18 16 16 Blood Pressure 117/67 125/69 123/66 Pulse Oximetry 99 99 99 Oxygen Delivery Room Air Room Air Room Air Oxygen Flow Rate 05/20/25 13:00 05/20/25 13:30 05/20/25 14:00 Temperature 97.0 F L Pulse Rate 65 75 72 Respiratory Rate 18 16 16 Blood Pressure 131/72 131/70 118/70 Pulse Oximetry 98 100 100 Oxygen Delivery Room Air Room Air Room Air Oxygen Flow Rate 05/20/25 14:45 05/20/25 15:00 05/20/25 15:30 Temperature 97.2 F L 97.6 F 98.2 F Pulse Rate 70 71 73 Respiratory Rate 16 16 16 Blood Pressure 141/95 H 129/72 127/74 Pulse Oximetry 99 100 99 Oxygen Delivery Oxygen Flow Rate 05/20/25 20:13 05/21/25 00:13 05/21/25 01:03 Temperature 99.9 F H 98.8 F Pulse Rate 88 77 Respiratory Rate 16 16 Blood Pressure 128/66 136/71 Pulse Oximetry 98 99 Oxygen Delivery Room Air Oxygen Flow Rate 05/21/25 05:52 05/21/25 07:49 05/21/25 08:00 Temperature 100.2 F H Pulse Rate 94 Respiratory Rate 16 Blood Pressure 124/73 Pulse Oximetry 98 98 Oxygen Delivery Room Air Room Air Oxygen Flow Rate 05/21/25 08:13 05/21/25 08:31 Temperature 98.0 F Pulse Rate 81 Respiratory Rate 16 Blood Pressure 126/87 Pulse Oximetry 99 Oxygen Delivery Room Air Oxygen Flow Rate Intake/Output Intake/Output: Intake & Output 05/18/25 05/19/25 05/20/25 05/21/25 23:59 23:59 23:59 23:59 Intake Total 1820 1819.2 Output Total 110 Balance 1820 1709.2 Meds/Results Medications: Active Medications Generic Name Dose Route Start Last Admin Trade Name Freq PRN Reason Stop Dose Admin Acetaminophen 650 mg 05/20/25 17:00 05/21/25 09:06 Acetaminophen 325 Mg Tablet PO 650 mg Q4HR BIRGIT Administration Amlodipine Besylate 5 mg 05/21/25 09:00 05/21/25 09:07 Amlodipine Besylate 5 Mg Tablet PO 5 mg DAILY BIRGIT Administration Apixaban 2.5 mg 05/21/25 09:00 05/21/25 09:07 Apixaban 2.5 Mg Tablet PO 06/24/25 21:01 2.5 mg Q12HR BIRGIT Administration Celecoxib 200 mg 05/21/25 09:00 05/21/25 09:08 Celecoxib 200 Mg Capsule PO 200 mg DAILY BIRGIT Administration Cyanocobalamin 2,500 mcg 05/21/25 09:00 05/21/25 09:07 Cyanocobalamin 500 Mcg Tablet PO 2,500 mcg DAILY BIRGIT Administration Doxycycline Hyclate 100 mg 05/21/25 09:00 05/21/25 09:08 Doxycycline Hyclate 100 Mg Tablet PO 100 mg Q12HR BIRGIT Administration Famotidine 20 mg 05/20/25 21:00 05/21/25 09:08 Famotidine 20 Mg Tablet PO 20 mg Q12HR BIRGIT Administration Sodium Chloride 1,000 mls @ 125 mls/hr 05/20/25 14:28 05/21/25 06:01 Normal Saline Iv IV CONT 125 mls/hr .Q8H BIRGIT Administration Morphine Sulfate 2 mg 05/20/25 14:28 Morphine Sulfate (*Crx) 2 Mg/Ml Inj IV PUSH Q2H PRN Breakthrough Pain Rated 4-6 or NPO Naloxone HCl 0.1 mg 05/20/25 14:28 Naloxone Hcl 0.4 Mg/Ml Vial IV PUSH Q2M PRN Opiate Reversal Ondansetron HCl 4 mg 05/20/25 14:28 05/20/25 18:06 Ondansetron Inj 4 Mg/2 Ml Vial IV PUSH 4 mg Q4H PRN Administration Nausea And Vomiting Polyethylene Glycol 17 gm 05/21/25 09:00 05/21/25 09:06 Polyethylene Glycol 3350 17 Gm Powd.Pack PO Not Given QAM [facility] Senna/Docusate Sodium 2 tab 05/20/25 17:00 05/21/25 09:06 Senna/Docusate Sodium Tablet PO Not Given BID [facility] Tramadol HCl 50 mg 05/21/25 07:41 Tramadol Hcl (*Crx) 50 Mg Tablet PO Q6H PRN Pain Rated 4-6 Vitamin D 50 mcg 05/21/25 09:00 05/21/25 09:07 Cholecalciferol (Vitamin D3) 25 Mcg (1,000 Units) Tablet PO 50 mcg DAILY BIRGIT Administration Radiology Results: ITS Impressions Intraoperative X-Ray 05/20/25 11:38 IMPRESSION: 1. Expected appearance during left total hip arthroplasty. See procedure note for further detail. Hip/Pelvis X-Ray 05/20/25 11:40 IMPRESSION: No acute osseous abnormality pelvis. Left hip arthroplasty with postoperative changes. Severe right hip osteoarthritic changes. Labs Labs: Laboratory Results - last 24 hr 05/21/25 06:41 WBC 9.8 RBC 3.16 L Hgb 9.5 L D Hct 29.3 L MCV 92.7 MCH 30.1 MCHC 32.4 RDW 12.3 Plt Count 154 MPV 11.1 H Immature Gran % (Auto) 0.4 Neut % (Auto) 85.8 H Lymph % (Auto) 8.8 L [place] % (Auto) 4.6 Eos % (Auto) 0.2 Baso % (Auto) 0.2 Lymph # (Auto) 0.86 L [place] # (Auto) 0.5 Eos # (Auto) 0.0 Baso # (Auto) 0.0 Abs Immat Gran (auto) 0.04 H Absolute Neuts (auto) 8.4 H Absolute Nucleated RBC 0.000 Nucleated RBC % 0.0 Sodium 138 Potassium 4.0 Chloride 105 Carbon Dioxide 25 Anion Gap 8 BUN 9 Creatinine 0.68 L Estim Creat Clear Calc 58 Estimated GFR > 60 Glucose 165 H Calcium 8.4
[2025-05-21] MEDS: traMADol HCL (*CRX) 50 MG TABLET PO (11:09)
== END 2025-05-21 11:16 | disposition home or self-care (01) ==
LOC: ANHSURGERY 06:01 → ANH3MED 15:26 → ANH3MEDSUR 05-21 00:30
PROVIDERS: Physician Assistant Surgical; PCP Family Medicine; Visit Provider Orthopaedic Surgery
PROC: (CPT 27130; principal; 2025-05-20 07:30)
DX: M16.12 Unilateral primary osteoarthritis, left hip (principal); D64.89 Other specified anemias; R50.9 Fever, unspecified; I10 Essential (primary) hypertension; D51.9 Vitamin B12 deficiency anemia, unspecified; E55.9 Vitamin D deficiency, unspecified; E78.2 Mixed hyperlipidemia; Z87.891 Personal history of nicotine dependence
CPT/HCPCS: 27130; 36415; 73501; 80048; 85025; 86850; 86900; 86901; 97110; 97161; 97165; 97535; 99199; A9270; C1713; C1776; J0171; J0690; J1100; J1171; J1885; J2003; J2250; J2270; J2371; J2405; J2704; J2795; J3010; J3370; J7030; J7120

== ENCOUNTER 2025-07-21 09:10 | Outpatient (CLI) | payer MEDICARE, SELFPAY ==
--- OUTSIDE RECORDS SUMMARY | 2025-07-21 09:25 | XMS_ITS | Clinical Summary ---
Author Organization [facility] Address [facility] [place] [address] Care Team Providers Care Admitting Clerk Name Role Phone Unavailable Primary Care Provider Unavailabl e Social History Tobacco Use Types Packs/Day Years Used Date Smoking Tobacco: Never Assessed Comments Unknown Sex and Gender Information Value Date Recorded Sex Assigned at Not on file Legal Sex Female 7:00 PM CDT Gender Identity Not on file Sexual Orientation Not on file Plan of Treatment Health Maintenance Due Date Last Done Comments Colorectal Cancer Screening Colonoscopy (10 Years) 1949 Hepatitis C 1967 DTaP, Tdap and Td Vaccines ( 1 - Tdap) 1968 Pneumococcal Vaccine: 50+ Ye ars (1 of 1 - PCV) 1999 Zoster Vaccines (1 of 2) 1999 Dexa Scan (General) 2014 COVID-19 Vaccine ( - 2023-2 5 season) 2024 RSV Immunization or 60+ Years (1 - 1-dose 75+ series) 2024 Meningococcal B Vaccine Aged Out No l onger eligible based on patient's age to complete this topic Meningococcal Vaccine Aged Out No marimar pipo eligible based on patient's age to complete this topic RSV Immunizations Under 20 Months Aged Out No longer eligible based on patient's age to complete this topic
[2025-07-21 09:52] LABS: Hematocrit 39.7 % (37.0-47.0); Hemoglobin 12.9 g/dL (12.0-15.0); Immature Granulocyte Percent A 0.2 % (0-0.5); Lymphocytes Absolute Auto 1.19 K/mm3 (0.9-3.2); Mean Corpuscular HGB Conc 32.5 g/dl (32-36); Mean Corpuscular Hemoglobin 29.7 pg (26-34); Mean Corpuscular Volume 91.3 fl (80-100); Nucleated Red Blood Cells Absolute Auto 0.000 K/mm3 (0.0-0.012); Nucleated Red Blood Cells Perc 0.0 % (0.0-0.2); Platelet Count Result 195 k/mm3 (150-375); Red Blood Count 4.35 M/mm3 (4.2-5.4); White Blood Count 5.1 K/mm3 (4.5-10.0)
[2025-07-21 10:14] LABS: Albumin Level 4.3 g/dL (3.5-5.1); Anion Gap 7 mmol/L (4-12); Blood Urea Nitrogen 15 mg/dL (7-17); Calcium 9.5 mg/dL (8.4-10.2); Carbon Dioxide 31 mmol/L (22-30); Chloride 101 mmol/L (98-107); Estimated Glomerular Filt Rate > 60; Glucose 96 mg/dL (65-110); Potassium 3.9 mmol/L (3.4-5.0); Sodium 139 mmol/L (137-145)
[2025-07-21 10:16] LABS: Hemoglobin A1C 5.0 % (<5.7)
== END 2025-07-21 09:11 | disposition home or self-care (01) ==
LOC: ANHSURGERY 09:14
PROVIDERS: PCP Family Medicine; Visit Provider Orthopaedic Surgery
DX: M16.11 Unilateral primary osteoarthritis, right hip (principal); Z01.818 Encounter for other preprocedural examination
CPT/HCPCS: 80048; 80307; 82040; 83036; 85025; 86850; 86900; 86901; 87081

== ENCOUNTER 2025-08-03 00:24 | Day surgery (SDC) | payer MEDICARE, SELFPAY ==
--- NOTE | 2025-07-16 14:21 | PC.NURSE ---
Report to the Outpatient Waiting Room, entrance under the green pavilion located off [facility], at time __6:30 AM on date __08/03/25 . Planned Procedure Time: _8:30 AM .? Time changes happen often and if your time is changed the preop area will call you the afternoon before. - You and your visitor will be asked to self-screen and do not enter if you have any COVID symptoms. Please call surgeon if you need to reschedule. - A mask is optional within the hospital at this time. Patients may have clear liquids (water, carbonated beverages, clear teas, apple juice) until 3 hours prior to surgery ( 5:30 AM )with a maximum of 20 ounces. - No food from midnight until time of surgery and no smoking, or chewing tobacco (or any form of nicotine). No chewing gum, candy or mints. Take only the following medications with a SIP of water on the morning of surgery: ___AMLODIPINE DO NOT STOP ANY OF YOUR OTHER PRESCRIPTION MEDICATIONS PRIOR TO SURGERY EXCEPT THE FOLLOWING Hold all vitamins and supplements for 3 days per anesthesiologist.LAST DOSE 07/30/25 Medications to discontinue per physician NONE Please no make-up, nail welsh, hairspray, perfume, deodorant, or body powder the day of surgery.? No jewelry (including any body piercings) or valuables the day of surgery, leave them at home.? Please take a shower or bath the night before, or the morning of, surgery with an antibacterial soap.? Wear comfortable, loose fitting clothing.? Children are encouraged to wear pajamas. - Jewelry must be removed prior to entering the operating room.? Rings and piercings that are not removed may be cut off. - The hospital will not accept responsibility for valuables.? - Please leave all valuables, including medications, at home the day of surgery. If you are going home after surgery, a licensed chuck wagon driver must drive you home.? - NO public transportation without another adult if you receive anesthesia. - We recommend that an adult stay with you for 24 hours following discharge. - We also recommend that you do not drive, make important decision, drink alcoholic beverages, or take any drugs that were not prescribed by your health care provider for at least 24 hours after your discharge time. For Pediatric surgeries, we recommend two adults accompany the child home. Follow any additional instructions given to you from your surgeon. Telephone instructions given to __PATIENT and asked if any additional questions and then verbalized understanding. Patient advised to call surgeon office or pre surgery nurse liaison [phone] if any additional questions.
[2025-07-16 14:40] VITALS: BMI 22.9
[2025-08-03] VITALS (13 sets, daily range): BP systolic 101–150; BP diastolic 48–75; PULSE 70–102; RESP 14–20; TEMP 35.6–37.4; O2SAT 95–100
--- NOTE | ~2025-08-03 | XR_ITS ---
XR surgery orthopedic Indication: Right total hip arthroplasty TECHNIQUE: Fluoroscopy used during right total hip arthroplasty performed by [Art Wang MD] on 08/03/2025. 76 seconds with 0 images captured. FINDINGS: Correlate with procedure note. IMPRESSION: Fluoroscopy used during right total hip arthroplasty. Reviewed, dictated and finalized at location O.
--- NOTE | ~2025-08-03 | XR_ITS ---
EXAMINATION: XR hip RT 1V w AP pelvis DATE: 08/03/2025 12:52 INDICATION: Right total hip arthroplasty TECHNIQUE: 2 views right hip FINDINGS: There is a right total hip arthroplasty in expected position. Subcutaneous gas with soft tissue swelling are consistent with recent surgery. Note is made of left total hip arthroplasty as well. IMPRESSION: 1. Recent right total hip arthroplasty. Reviewed, dictated and finalized at location O.
--- OUTSIDE RECORDS SUMMARY | 2025-08-03 00:26 | XMS_ITS | Clinical Summary ---
Author Organization [facility] Address [facility] [place] [address] Care Team Providers Care Children'S Program Coordinator Name Role Phone Unavailable Primary Care Provider [...] of 2) 1999 Dexa Scan (General) 2014 RSV Immunization or 60+ Years (1 - 1-dose 75+ series) 2024 COVID-19 Vaccine ( - 2023-2 5 season) 2025 Meningococcal B Vaccine Aged Out No l onger eligible based on patient's age to complete this topic Meningococcal Vaccine Aged Out No marimar pipo eligible based on patient's age to complete this topic RSV Immunizations Under 20 Months Aged Out No longer eligible based on patient's age to complete this topic
[2025-08-03] MEDS: LACTATED RINGERS 1,000 ML 30 ML IV CONT ×2 (06:45→12:38)
--- NOTE | 2025-08-03 07:05 | P.HP_ITS ---
H&P: HPI History of Present Illness Date/Time: 08/03/25 07:05 Chief Complaint: Severe right hip pain Narrative: Physical examination Left hip shows flexion from 0-90 degrees 20? each of internal and external rota tion. She has no swelling in the left leg wound is well healed. She walks with a pronounced limp today. She has a significant flexion contracture of the right hip and the right hip is very stiff when she walks the left hip seems to move normally. She is actually partial weight-bearing on right because of the pain she is full weight-bearing left. Examination of the right hip shows flexion from 20-90 degrees. Has 5? internal in 5? of external rotation. Extension internal rotation both caused diffuse lateral hip pain. She could abduct about 5? in the side-lying position and this was associated with significant bony crepitus during abduction strength testing but she did exhibit 5 5 abduction strength in that position. There is mild tenderness over greater trochanter. She has 2+ dorsalis pedis and posterior tibial artery pulses palpable. Normal light touch sensation in right lower extremity. Skin looks normal no lower extremity edema. With Stinchfield maneuver she severe diffuse right thigh pain. She is alert and oriented no acute distress. BMI is 23.6. [facility] Past Medical History Medical History (Reviewed 07/21/25 @ 09:30 by Morenita Roberson [facility]) MRSA (methicillin resistant Staphylococcus aureus) carrier BMI 22.0-22.9, adult At moderate risk for fall (~08/21/23) Overweight (BMI 25.0-29.9) Chronic hip pain, bilateral X-ray of the hips 02/06/2023 revealed advanced osteoarthritis bilaterally. Chronic low back pain with bilateral sciatica X-ray of the lumbar spine on 02/06/2023 reveals mild facet arthropathy L3 through S1 with mild degenerative disc disease. Anterior wedging of L4 vertebrae. MRI of the lumbar spine on 05/30/2023 reveals severe degenerative disc disease at L4-L5 and L5-S1 with severe central spinal stenosis at L4-L5 and L5-S1 with severe right neuroforaminal narrowing at L4-L5 Chronic low back pain with right-sided sciatica BMI 24.0-24.9, adult BMI 23.0-23.9, adult Polyp of colon colon polyp 04/14/2013. Repeat colonoscopy Mar, 2018 normal Seasonal allergic rhinitis COVID-19 (~12/23/20) Osteoarthritis involving multiple joints on both sides of body Chronic constipation stable with magnesium twice daily Chronic left-sided low back pain without sciatica Left hip pain Surgical History Surgical History (Reviewed 07/21/25 @ 09:30 by Morenita Roberson [facility]) Status post low friction arthroplasty of hip Status post lumbar surgery History of tubal ligation History of cholecystectomy Family History Family History (Reviewed 07/21/25 @ 09:30 by Morenita Roberson [facility]) Mother Father Family history of cardiovascular disease, Onset Age: 80 Grandparent Family history of cardiovascular disease, Onset Age: 75 Family history of malignant neoplasm of bone, Onset Age: 79 Family history of malignant neoplasm of urinary bladder, Onset Age: 82 Sibling Family history of cardiovascular disease Family history of malignant neoplasm Carcinoma of colon Social History Social History (Updated 07/21/25 @ 10:30 by Annelise Shelton [facility]) Smoking packs per day: 1 Smoking cigarettes per day: 20.0 Years smoked: 15 Smoking pack-years: 15.00 Smoking status: Former smoker Tobacco type: cigarettes Second hand tobacco smoke exposure: No Smoking end date: 11/25/79 Additional smoking assessment comments: DENIES ANY FORM OF TOBACCO USE Alcohol intake: current Alcohol use details: ONE / MONTH Substance use: never Substance use type: does not use Do You Feel Safe in your Home?: Yes Lack of Transportation: No Lack of Food: Never True Current Housing: I Have Housing Concerned About Future Housing: No Difficulty Paying Gas/Electric Bills: No Difficulty Paying for Meds: No Currently Unemployed: No Education: High School Diploma/GED Difficulty w/ Childcare or Family Care: No Living arrangements: with family Spiritual care concerns: No Meds Home Medications and Allergies Home Medications ?Medication ?Instructions ?Recorded ?Confirmed ?Type cholecalciferol (vitamin D3) 50 2,000 unit PO DAILY 08/03/25 History mcg (2,000 unit) capsule magnesium oxide 500 mg PO BID 08/21/2308/03 History cyanocobalamin (vitamin B-12) 2,500 mcg PO DAILY 12/3008/03/25 History 1,000 mcg tablet amlodipine 5 mg tablet 5 mg PO DAILY #90 tabs 02/2308/03/25 Rx benazepril 40 mg tablet 40 mg PO DAILY #90 tabs 04/0 12/1908/03/25 Rx acetaminophen 325 mg tablet 650 mg (2 x 325 mg) PO Q4H R #90 05/21/25 07/21/25 Rx tabs tramadol 50 mg tablet 50 mg PO PRN PRN pain 08/03/25 History sulfamethoxazole 800 1 tablet PO BID 10 days #20 tabs 07/25/25 Rx mg-trimethoprim 160 mg tablet Allergies Allergy/AdvReac Type Severity Reaction Status Date / Time aspirin Allergy Unknown Unknown Verified 08/03/25 06:51 Assessment and Plan Assessment and plan (1) Primary osteoarthritis of right hip: Code(s): M16.11 - Unilateral primary osteoarthritis, right hip Status: Acute Assessment and Plan: . Advanced osteoarthritis of the right hip. Patient is scheduled to undergo right total hip replacement on 08/03/2025. I have discussed risks of surgery with her in detail. I explained there will be numbness around the incision. Risk of infection discussed. She states her teeth are in good condition. Risk of blood clots was discussed. She has no personal or family history of DVT. Risk of heterotopic ossification reviewed and we would plan to again use Celebrex for 10 days after surgery. Risk of leg length discrepancy, fracture, dislocation, component loosening or wear and need for revision surgery discussed. Risk for bleeding and transfusion, nerve injury, and medical complications such as heart attack stroke pulmonary embolism and were reviewed. Patient understands and wishes to proceed.
--- NOTE | 2025-08-03 07:09 | WPDHPUPDATE1 ---
History and Physical Update Update Date/Time: 08/03/25 07:09 History and Physical has been reviewed, including an updated exam of the patient. There are NO changes in the patient's condition. Risks, benefits, and alternatives have been discussed and questions answered. Patient agrees to proceed with procedure.
[2025-08-03] MEDS: ACETAMINOPHEN 500 MG TABLET 1000 MG PO (07:22)
[2025-08-03] MEDS: TRANEXAMIC ACID 1,000MG/ISO100 1,000 MG/100 ML BAG 200 MG IVPB (07:23)
[2025-08-03] MEDS: VANCOMYCIN HCL 1,000 MG in SODIUM CHLORIDE 0.9% IV 250 ML 250 MG IVPB ×2 (07:23→21:32)
--- NOTE | 2025-08-03 08:25 | WPDANESEPPF ---
Anes - Initial Pre Proc Eval Procedure: Operation Date: 08/03/25 08:30 Proposed Procedures p Right Total Hip Arthroplasty, Anterior Approach - Art Wang MD Date/Time: 08/03/25 08:25 Surgeon: Art Wang MD Pre Op Diagnosis: OA right hip Patient Data Age: 74 Gender: F Height: 1.68 m Weight: 64.8 kg Last Vital Signs Temp 99.4 F 08/03/25 07:26 Pulse 70 08/03/25 07:26 Resp 16 08/03/25 07:26 BP 150/75 H 08/03/25 07:26 Pulse Ox 100 08/03/25 07:26 O2 Del Method Room Air 08/03/25 07:26 Allergies Allergy/AdvReac Type Severity Reaction Status Date / Time aspirin Allergy Unknown Unknown Verified 08/03/25 06:51 Home Medications ?Medication ?Instructions ?Recorded ?Confirmed ?Type cholecalciferol (vitamin D3) 50 2,000 unit PO DAILY 08/21/23 08/03/25 History mcg (2,000 unit) capsule magnesium oxide 500 mg PO BID 08/21/23 08/03/25 History cyanocobalamin (vitamin B-12) 2,500 mcg PO DAILY 12/30/24 08/03/25 History 1,000 mcg tablet amlodipine 5 mg tablet 5 mg PO DAILY #90 tabs 02/23/25 08/03/25 Rx benazepril 40 mg tablet 40 mg PO DAILY #90 tabs 02/23/25 08/03/25 Rx acetaminophen 325 mg tablet 650 mg (2 x 325 mg) PO Q4HR #90 05/21/25 07/21/25 Rx tabs tramadol 50 mg tablet 50 mg PO PRN PRN pain 07/16/25 08/03/25 History sulfamethoxazole 800 1 tablet PO BID 10 days #20 tabs 07/25/25 Rx mg-trimethoprim 160 mg tablet Patient hx anesthesia problems: none Family hx anesthesia problems: none Results Review: All pre-operative results and documents have been reviewed as part of the pre-operative evaluation. [facility] Past Medical History Medical History MRSA (methicillin resistant Staphylococcus aureus) carrier BMI 22.0-22.9, adult At moderate risk for fall (~08/21/23) Overweight (BMI 25.0-29.9) Chronic hip pain, bilateral X-ray of the hips 02/06/2023 revealed advanced osteoarthritis bilaterally. Chronic low back pain with bilateral sciatica X-ray of the lumbar spine on 02/06/2023 reveals mild facet arthropathy L3 through S1 with mild degenerative disc disease. Anterior wedging of L4 vertebrae. MRI of the lumbar spine on 05/30/2023 reveals severe degenerative disc disease at L4-L5 and L5-S1 with severe central spinal stenosis at L4-L5 and L5-S1 with severe right neuroforaminal narrowing at L4-L5 Chronic low back pain with right-sided sciatica BMI 24.0-24.9, adult BMI 23.0-23.9, adult Polyp of colon colon polyp 04/14/2013. Repeat colonoscopy Mar, 2018 normal Seasonal allergic rhinitis COVID-19 (~12/23/20) Osteoarthritis involving multiple joints on both sides of body Chronic constipation stable with magnesium twice daily Chronic left-sided low back pain without sciatica Left hip pain Surgical History Surgical History Status post low friction arthroplasty of hip Status post lumbar surgery History of tubal ligation History of cholecystectomy Family History Family History Mother Father Family history of cardiovascular disease, Onset Age: 80 Grandparent Family history of cardiovascular disease, Onset Age: 75 Family history of malignant neoplasm of bone, Onset Age: 79 Family history of malignant neoplasm of urinary bladder, Onset Age: 82 Sibling Family history of cardiovascular disease Family history of malignant neoplasm Carcinoma of colon Social History Social History (Updated 07/21/25 @ 10:30 by Annelise Shelton CMA) Smoking packs per day: 1 Smoking cigarettes per day: 20.0 Years smoked: 15 Smoking pack-years: 15.00 Smoking status: Former smoker Tobacco type: cigarettes Second hand tobacco smoke exposure: No Smoking end date: 11/25/79 Additional smoking assessment comments: DENIES ANY FORM OF TOBACCO USE Alcohol intake: current Alcohol use details: ONE / MONTH Substance use: never Substance use type: does not use Do You Feel Safe in your Home?: Yes Lack of Transportation: No Lack of Food: Never True Current Housing: I Have Housing Concerned About Future Housing: No Difficulty Paying Gas/Electric Bills: No Difficulty Paying for Meds: No Currently Unemployed: No Education: High School Diploma/GED Difficulty w/ Childcare or Family Care: No Living arrangements: with family Spiritual care concerns: No Anes - Eval Final PreProcedure Day of Procedure 08/03/25 08:25 Patient weight: normal Heart: regular rate and rhythm Lungs: clear to auscultation Airway: Mallampati scale class II Neurological: alert and oriented Last oral intake: >/= 8 hours ASA classification: III Emergent: no Anesthetic plan: proceed Anesthesia type and monitoring: general ETT and standard monitoring Results Review: All pre-operative results and documents have been reviewed as part of the pre-operative evaluation. Informed Consent: The patient's anesthetic plan and its attendant risks and benefits were discussed with the patient/family/POA. Questions were solicited and answers provided to the satisfaction of the patient/family/POA.
[2025-08-03] MEDS: ceFAZolin 2 GM in SODIUM CHLORIDE 0.9% IV 50 ML 100 ML IVPB ×3 (08:32→23:19)
[2025-08-03] MEDS: SODIUM CHLORIDE 0.9% IV 37.7 ML, MORPHINE SULFATE INJ (*CRX) 2 MG, ROPivacaine HCL 1% 2... INFILTRATE (08:43)
[2025-08-03] MEDS: TRANEXAMIC ACID 1,000 MG/10 ML AMPUL 1000 MG IV PUSH (11:52)
[2025-08-03] MEDS: KETOROLAC 15 MG/ML VIAL (*BKC) IV PUSH (12:03)
--- NOTE | 2025-08-03 12:32 | P.OP_ITS ---
Procedure Note - Detailed Date of Procedure 08/03/25 Pre-op Diagnosis OA right hip Post-op Diagnosis Same Procedure Performed Right total hip arthroplasty direct anterior approach Surgeon Art Wang MD Health Commissioner Tye Rabago Anesthesia General Description of Procedure Patient was brought to the operating room general anesthesia was administered. She received 2 g of Ancef weight based vancomycin 1 g of TXA preoperatively. The feet were padded in boots applied SCDs applied to the calves which were running during the procedure. She was transferred to the [facility] table and the right hip prepped draped usual fashion. A 10 cm longitudinal incision was made starting 3 cm lateral to the ASIS. Dissection was carried down to the fascia over the tensor fascia joselyn which was longitudinally incised and split over the anterior TFL. The interval between TFL and rectus femoris was developed. Multiple crossing branches of ascending lateral femoral circumflex vessels were ligated with suture divided. Retractor was placed anteromedial to the capsule after elevation of the iliacus. Hip abducted internally rotated the gluteus minimus elevated off the lateral capsule. Inverted T capsulotomy was performed. Femoral neck osteotomy made according to preoperative templating. The femoral head was reduced with rongeur or circumferentially to reduce it sized to enable extraction. Hemostasis was achieved but we could see that there was a fair amount of constant oozing of blood from the proximal femoral osteotomy. Therefore we packed 1 package of sterile bone wax to reduce blood loss during acetabular preparation. Acetabulum was exposed labrum excised. The acetabular diameter was significantly enlarged peripherally in association with the massive size of her femoral head osteophytes and lateral subluxation. The acetabulum was medialized the medial wall with a 44 Reamer and we reamed up to a size 50. The bone was somewhat poor quality superolateral partially infiltrated with a granulation tissue. Fifty trial was not snug. We reamed to a 51 and the 51 trial fit properly and we chose the 52 shell. This had a tight fit anterior to posterior but was not tight. We therefore reamed superiorly an additional 3 mm with a 51 Reamer which gave better superolateral bone contact and with this the 52 mm pinnacle shell after repeat irrigation with antibiotic solution fit snugly with a tight stable fit. Single screw was placed in the ilium which obtained excellent purchase. The 36 inner diameter polyethylene liner was fully seated. The cup was placed and a fluoroscopic guidance at 40? of abduction. Conservative removal of osteophyte was performed. The leg was externally rotated extended with the table hook in place giving appropriate exposure of the proximal femur. The bone wax was removed. The conjoined tendon overlying the femoral neck medial to the greater trochanter was removed the the but the more posterior aspects of the conjoined tendon and the piriformis tendon were left undisturbed. Femur was broached to a size 7 which still had torsional play and the size 8 broach which solid torsional stability. We trialed with the 1.5 head high offset neck and with a line drawn across the obturator foramina this showed equal leg lengths relative to the lesser trochanters and to soft tissue was appropriate.. We calcar carefully calcar planed. Her prominent varus to her femoral neck resulted in some gapping of the proximal aspect of the medial femoral neck and the body of the stem. We inserted the size 8 Actis stem high offset M when it was about 5 mm from full seating did pack some cancellous bone graft in the gap between the medial femoral neck and the medial margin of the metaphyseal body of the stem and then the stem seated fully resting on the calcar. We trialed once again with the 1.5 this was found to be appropriate with leg lengths equal under fluoroscopic evaluation. The real 1.5 x 36 ceramic head was impacted on the clean and dried trunnion after thorough irrigation of the wound hip reduced stability reconfirmed. Final fluoroscopic x-ray was achieved showed no radiographic complication. Capsule was reapproximated superiorly with 2. Vicryl. Local anesthetic cocktail injected the periarticular soft tissues. She received 2 additional g of Ancef 1 g of TXA. The fascia was closed with running 1. Vicryl a drain deep in the subcu skin closed with 2 Vicryl and glue EBL was 500 cc 125 given back as Cell Saver blood. She was transferred postop recovery room in stable addition. Number complications. Again her cancellous bone was very soft. However we seemed to have excellent fixation of the implants to allow weight-bearing as tolerated. [facility] Billing Surgery - Charge Forward: Surgery Billing (Right total hip replacement)
[2025-08-03] MEDS: ONDANSETRON INJ 4 MG/2 ML VIAL IV PUSH ×2 (12:53→18:14)
[2025-08-03] MEDS: fentaNYL CITRATE INJ (*CRX) 100 MCG/2 ML VIAL 25 MCG IV PUSH ×2 (13:19→13:23)
--- NOTE | 2025-08-03 15:01 | ADMGEN ---
This patient, Josephine Guerrier, was admitted to 3 [facility] Surg Room 326-01. Patient/family oriented to hospital policies and general routines including ID bracelet, bed and alarms, visiting hours, pain management, procedures, bathroom and other care routines, personal items, smoking policy, room service/diet, and visiting hours. Information on how to activate the Rapid Response Team has been discussed. Patient/Family are encouraged to report perceived risks to care and to ask questions if they do not understand what they are told or what they should do.
[2025-08-03] MEDS: SODIUM CHLORIDE 0.9% IV 1,000 ML 125 ML IV CONT (15:11)
[2025-08-03] MEDS: ACETAMINOPHEN 325 MG TABLET 650 MG PO ×3 (15:11→23:21)
[2025-08-03] MEDS: SENNA/DOCUSATE SODIUM TABLET 2 TAB PO (18:02)
--- NOTE | 2025-08-03 19:58 | PM.IMCN ---
Assessment and Plan Assessment and plan (1) Primary osteoarthritis of right hip: Code(s): M16.11 - Unilateral primary osteoarthritis, right hip Status: Acute Assessment and Plan: Underwent a right total hip arthroplasty with a direct anterior approach on 08/03. - primary management via orthopedic team - ambulate with assistance and up to chair - hip precautions in place - use IS - neurovasc checks - see order for intervals - SCDs, Eliquis - analgesics and antiemetics p.r.n. - monitor labs in AM - CBC and BMP - bowel regimen: docusate/senna, polyethylene glycol - PT/OT (2) Essential (primary) hypertension: Code(s): I10 - Essential (primary) hypertension Status: Chronic Assessment and Plan: - chronic, currently 114/58 - home medications: hold benazepril, continue amlodipine - monitor Plan Diet: Regular GI Prophylaxis: n/a DVT Prophylaxis: SCDs, Eliquis IV fluids: NS 125 mL/hr Lines/Tubes: Peripheral IV Code Status: Full code HPI Date of Consult Consult date: 08/03/25 Requesting Physician: Art Wang MD Primary Care Provider: Washington Blood MD Consult Narrative Reason for consult: Medical Management Narrative: Josephine Guerrier is a 74 year old female with a PMH of chronic back pain, osteoarthritis, and chronic constipation. The patient presents here on 08/03 for a right total hip arthroplasty. Prior to surgery the patient reports she had begun walking with a limp, her hip was stiff and was having difficulty with weight-bearing. She has a history of advanced osteoarthritis of the right hip. Given that the pain has been affecting her daily life she elected to move forward with surgical management. Patient previously had her left hip done in April of 2025, she had an uneventful recovery and she has been pleased with the results. Postoperatively she is reporting nausea and vomiting, improved with Zofran. Preop VS: 99.4? F, HR 70, R 16, 150/75, and 100% on RA. Preop workup: No leukocytosis, hemoglobin 12.9, no significant electrolyte derangements, creatinine 0.68 and GFR >60, A1c 5.0%. Review of Systems Review of Systems: All systems reviewed & are unremarkable except as noted in HPI and below PMFSH Past Medical History Medical History Essential (primary) hypertension MRSA (methicillin resistant Staphylococcus aureus) carrier At moderate risk for fall (~08/21/23) Chronic hip pain, bilateral X-ray of the hips 02/06/2023 revealed advanced osteoarthritis bilaterally. Chronic low back pain with bilateral sciatica X-ray of the lumbar spine on 02/06/2023 reveals mild facet arthropathy L3 through S1 with mild degenerative disc disease. Anterior wedging of L4 vertebrae. MRI of the lumbar spine on 05/30/2023 reveals severe degenerative disc disease at L4-L5 and L5-S1 with severe central spinal stenosis at L4-L5 and L5-S1 with severe right neuroforaminal narrowing at L4-L5 BMI 23.0-23.9, adult Polyp of colon colon polyp 04/14/2013. Repeat colonoscopy Mar, 2018 normal Seasonal allergic rhinitis COVID-19 (~12/23/20) Osteoarthritis involving multiple joints on both sides of body Chronic constipation stable with magnesium twice daily Surgical History Surgical History History of total right hip arthroplasty History of cataract extraction Status post low friction arthroplasty of hip Status post lumbar surgery History of tubal ligation History of cholecystectomy Family History Family History Mother Father Family history of cardiovascular disease, Onset Age: 80 Grandparent Family history of cardiovascular disease, Onset Age: 75 Family history of malignant neoplasm of bone, Onset Age: 79 Family history of malignant neoplasm of urinary bladder, Onset Age: 82 Sibling Family history of cardiovascular disease Family history of malignant neoplasm Carcinoma of colon Social History Social History Smoking packs per day: 1 Smoking cigarettes per day: 20.0 Years smoked: 15 Smoking pack-years: 15.00 Smoking status: Former smoker Second hand tobacco smoke exposure: No Additional smoking assessment comments: DENIES ANY FORM OF TOBACCO USE Alcohol intake: current Alcohol use details: ONE / MONTH Substance use: never Substance use type: does not use Do You Feel Safe in your Home?: Yes Lack of Transportation: No Lack of Food: Never True Current Housing: I Have Housing Concerned About Future Housing: No Difficulty Paying Gas/Electric Bills: No Difficulty Paying for Meds: No Currently Unemployed: No Education: High School Diploma/GED Difficulty w/ Childcare or Family Care: No Living arrangements: with family Spiritual care concerns: No Meds Home Medications and Allergies Home Medications ?Medication ?Instructions ?Recorded ?Confirmed ?Type cholecalciferol (vitamin D3) 50 2,000 unit PO DAILY 08/21/23 08/03/25 History mcg (2,000 unit) capsule magnesium oxide 500 mg PO BID 08/21/23 08/03/25 History cyanocobalamin (vitamin B-12) 2,500 mcg PO DAILY 12/30/24 08/03/25 History 1,000 mcg tablet amlodipine 5 mg tablet 5 mg PO DAILY #90 tabs 02/23/25 08/03/25 Rx benazepril 40 mg tablet 40 mg PO DAILY #90 tabs 02/23/25 08/03/25 Rx acetaminophen 325 mg tablet 650 mg (2 x 325 mg) PO Q4HR #90 05/21/25 07/21/25 Rx tabs tramadol 50 mg tablet 50 mg PO PRN PRN pain 07/16/25 08/03/25 History Allergies Allergy/AdvReac Type Severity Reaction Status Date / Time aspirin Allergy Unknown Unknown Verified 08/03/25 06:51 Vital Signs Vital Signs - 24 hr 08/03/25 07:26 08/03/25 12:38 08/03/25 12:50 Temperature 99.4 F 97.7 F Pulse Rate 70 102 H 77 Respiratory Rate 16 20 15 Blood Pressure 150/75 H 124/62 122/71 Pulse Oximetry 100 99 100 Oxygen Delivery Room Air Simple Face Mask Simple Face Mask Oxygen Flow Rate 8 8 08/03/25 13:05 08/03/25 13:20 08/03/25 13:35 Temperature Pulse Rate 81 84 84 Respiratory Rate 15 14 20 Blood Pressure 126/51 L 132/70 127/48 L Pulse Oximetry 100 95 96 Oxygen Delivery Simple Face Mask Room Air Room Air Oxygen Flow Rate 8 08/03/25 13:50 08/03/25 14:05 08/03/25 15:00 Temperature 96.0 F L Pulse Rate 83 85 77 Respiratory Rate 16 18 18 Blood Pressure 121/59 L 120/57 L 101/58 L Pulse Oximetry 96 99 98 Oxygen Delivery Room Air Room Air Oxygen Flow Rate 08/03/25 15:15 08/03/25 16:45 Temperature 96.2 F L 96.6 F L Pulse Rate 75 73 Respiratory Rate 16 18 Blood Pressure 125/54 L 114/58 L Pulse Oximetry 98 100 Oxygen Delivery Oxygen Flow Rate Exam Const: General: comfortable and no acute distress Other: , female, elderly nontoxic appearance HENMT: Face/Nose/Sinus: Normal nares present Mouth: Yes moist mucous membranes Eyes: General: appearance normal, both eyes and all related structures Sclera: sclerae normal Pupils: Equal, round and reactive pupils present EOM: EOMs intact bilaterally Resp: Effort & Inspection: normal respiratory effort Auscultation: clear to auscultation bilaterally Cardio: Rate: regular rate Rhythm: regular rhythm Other: S1-S2 present without murmur, rub, ectopy GI: Other: Abdomen soft, nondistended, nontender. Normoactive bowel sounds in all quadrants. Skin: General skin exam: normal color and no rashes or lesions noted Other: Postoperative incision to right hip drain in place, serosanguineous output and minimal. Scant edema, very mild tenderness. Neuro: Speech: normal speech Motor exam (neuro): 5/5 motor strength present throughout Sensory Exam: normal sensation Other: A&O x4 Extrem: General: normal to inspection Psych: Mental Status: mental status grossly normal Affect: normal affect Other: Good insight and judgment, pleasant Quality VTE Prophylaxis VTE prophylaxis: mechanical ordered and pharmacologic ordered Hospitalist [facility] Advance Care Plan I have confirmed that the patient's Advanced Care Plan is present, code status is documented, or surrogate decision maker is listed in patient medical record.: Yes Medication Reconciliation I have utilized all available resources to obtain, update and review the patients current medications (includes all prescriptions, OTC, herbals, cannabis, and nutritional supplements).: Yes
[2025-08-03] MEDS: KETOROLAC 15 MG/ML VIAL (*BKC) 7.5 MG IV PUSH (23:21)
[2025-08-04 01:00] VITALS: BP 119/62; PULSE 85; RESP 16; TEMP 36.4; O2SAT 97
--- NOTE | 2025-08-04 01:45 | PC.NURSE ---
pt has refused gel packs during night time
[2025-08-04] MEDS: ACETAMINOPHEN 325 MG TABLET 650 MG PO ×3 (03:04→10:29)
[2025-08-04 06:22] LABS: Hematocrit 28.5 % (37.0-47.0); Hemoglobin 9.4 g/dL (12.0-15.0); Immature Granulocyte Percent A 0.6 % (0-0.5); Lymphocytes Absolute Auto 0.95 K/mm3 (0.9-3.2); Mean Corpuscular HGB Conc 33.0 g/dl (32-36); Mean Corpuscular Hemoglobin 29.4 pg (26-34); Mean Corpuscular Volume 89.1 fl (80-100); Nucleated Red Blood Cells Absolute Auto 0.000 K/mm3 (0.0-0.012); Nucleated Red Blood Cells Perc 0.0 % (0.0-0.2); Platelet Count Result 155 k/mm3 (150-375); Red Blood Count 3.20 M/mm3 (4.2-5.4); White Blood Count 13.8 K/mm3 (4.5-10.0)
[2025-08-04 06:42] LABS: Anion Gap 5 mmol/L (4-12); Blood Urea Nitrogen 11 mg/dL (7-17); Calcium 8.7 mg/dL (8.4-10.2); Carbon Dioxide 27 mmol/L (22-30); Chloride 105 mmol/L (98-107); Estimated CRCL calculation 65 ml/min; Estimated Glomerular Filt Rate > 60; Glucose 110 mg/dL (65-110); Potassium 3.7 mmol/L (3.4-5.0); Sodium 137 mmol/L (137-145)
[2025-08-04 07:06] VITALS: BP 122/68; PULSE 72; RESP 16; TEMP 37.1; O2SAT 95
--- NOTE | 2025-08-04 07:37 | P.PNOP_ITS ---
Progress Note: A&P Assessment and Plan (1) Status post total replacement of right hip: Code(s): Z96.641 - Presence of right artificial hip joint Status: Acute Assessment and Plan: Patient is postop day 1 after total hip replacement. She had severe nausea last night did have an about of vomiting. This morning she feels her nausea is resolved but she has not eaten anything yet for breakfast. She was up yesterday to the bathroom. On exam she is neurologically intact in the right leg there is no swelling around the hip wound looks fine. Hemoglobin today 9.4 representing acute blood loss anemia. Her preop hemoglobin was 12.9. This is similar to her hip replacement from April which time she had preop hemoglobin of 13.7 and postop day 1 it was 9.5. BMP is normal. I have spoken with her and her daughter about need for workup for osteoporosis and we will schedule a bone density test for her in the upcoming weeks. I would recommend she take a Citracal plus D twice daily. Precautions were discussed and I talked her about the importance of using the walker time study clerk for the next 4 weeks as her bone is osteoporotic. She may be weight-bearing as her comfort allows. She feels she would like to go home later this morning. We need to make sure she is able to tolerate getting up and walking around before discharge. Subjective Subjective Date/Time Seen: 08/04/25 07:37 Objective Data Vital Signs Vital Signs: Vital Signs - 24 hr 08/03/25 12:38 08/03/25 12:50 08/03/25 13:05 Temperature 36.5 C Pulse Rate 102 H 77 81 Respiratory Rate 20 15 15 Blood Pressure 124/62 122/71 126/51 L Pulse Oximetry 99 100 100 Oxygen Delivery Simple Face Mask Simple Face Mask Simple Face Mask Oxygen Flow Rate 8 8 8 Fraction of Inspired Oxygen 08/03/25 13:20 08/03/25 13:35 08/03/25 13:50 Temperature Pulse Rate 84 84 83 Respiratory Rate 14 20 16 Blood Pressure 132/70 127/48 L 121/59 L Pulse Oximetry 95 96 96 Oxygen Delivery Room Air Room Air Room Air Oxygen Flow Rate Fraction of Inspired Oxygen 08/03/25 14:05 08/03/25 15:00 08/03/25 15:15 Temperature 35.6 C L 35.7 C L Pulse Rate 85 77 75 Respiratory Rate 18 18 16 Blood Pressure 120/57 L 101/58 L 125/54 L Pulse Oximetry 99 98 98 Oxygen Delivery Room Air Oxygen Flow Rate Fraction of Inspired Oxygen 08/03/25 16:45 08/03/25 20:15 08/03/25 21:32 Temperature 35.9 C L Pulse Rate 73 78 Respiratory Rate 18 20 Blood Pressure 114/58 L Pulse Oximetry 100 95 Oxygen Delivery Room Air Room Air Oxygen Flow Rate Fraction of Inspired Oxygen 21 08/03/25 22:13 08/04/25 01:00 08/04/25 07:06 Temperature 36.5 C 36.4 C 37.1 C Pulse Rate 82 85 72 Respiratory Rate 14 16 16 Blood Pressure 116/58 L 119/62 122/68 Pulse Oximetry 98 97 95 Oxygen Delivery Oxygen Flow Rate Fraction of Inspired Oxygen Intake/Output Intake/Output: Intake & Output 08/01/25 08/02/25 08/03/25 08/04/25 23:59 23:59 23:59 23:59 Intake Total 550 350 Output Total 40 60 Balance 510 290 Meds/Results Medications: Active Medications Generic Name Dose Route Start Last Admin Trade Name Freq PRN Reason Stop Dose Admin Acetaminophen 650 mg 08/03/25 15:00 08/04/25 06:35 Acetaminophen 325 Mg Tablet PO 650 mg Q4H [facility]IRGIT Administration Amlodipine Besylate 5 mg 08/04/25 09:00 Amlodipine Besylate 5 Mg Tablet PO DAILY [facility] Apixaban 2.5 mg 08/04/25 09:00 Apixaban 2.5 Mg Tablet PO Q12HR [facility] Celecoxib 200 mg 08/04/25 08:00 Celecoxib 200 Mg Capsule PO DAILY@0800 [facility] Cyanocobalamin 2,500 mcg 08/04/25 09:00 Cyanocobalamin 500 Mcg Tablet PO DAILY [facility] Doxycycline Hyclate 100 mg 08/04/25 09:00 Doxycycline Hyclate 100 Mg Tablet PO 08/16/25 08:59 Q12HR B[facility] Vancomycin HCl 1,000 mg/ 250 mls @ 250 mls/hr 08/03/25 20:00 08/03/25 21:32 Sodium Chloride IVPB 08/04/25 08:59 250 mls/hr Q12H [facility] Administration Cefazolin Sodium 2 gm/ Sodium 50 mls @ 100 mls/hr 08/03/25 16:00 08/03/25 23:19 Chloride IVPB 08/04/25 08:29 100 mls/hr Q8H [facility]GIT Administration Sodium Chloride 1,000 mls @ 125 mls/hr 08/03/25 14:12 08/03/25 15:11 Normal Saline Iv IV CONT 125 mls/hr .Q8H BIRGIT Administration Morphine Sulfate 2 mg 08/03/25 14:12 Morphine Sulfate (*Crx) 2 Mg/Ml Inj IV PUSH Q1H PRN Pain Rated 7-10 Naloxone HCl 0.1 mg 08/03/25 14:12 Naloxone Hcl 0.4 Mg/Ml Vial IV PUSH Q2M PRN Opiate Reversal Ondansetron HCl 4 mg 08/03/25 14:12 08/03/25 18:14 Ondansetron Inj 4 Mg/2 Ml Vial IV PUSH 4 mg Q4H PRN Administration Nausea And Vomiting Oxycodone HCl 2.5 mg 08/03/25 15:00 08/04/25 03:02 Oxycodone Hcl (*Crx) 2.5 Mg Tab Ir PO Not Given Q4H B[facility]GIT Oxycodone HCl 2.5 mg 08/03/25 14:12 Oxycodone Hcl (*Crx) 2.5 Mg Tab Ir PO Q4H PRN Pain Rated 4-10 Polyethylene Glycol 17 gm 08/04/25 09:00 Polyethylene Glycol 3350 17 Gm Powd.Pack PO QAM [facility] Senna/Docusate Sodium 2 tab 08/03/25 17:00 08/03/25 18:02 Senna/Docusate Sodium Tablet PO 2 tab BID [facility] Administration Vitamin D 50 mcg 08/04/25 09:00 Cholecalciferol (Vitamin D3) 25 Mcg (1,000 Units) Tablet PO DAILY [facility] Radiology Results: ITS Impressions Hip/Pelvis X-Ray 08/03/25 12:59 IMPRESSION: 1. Recent right total hip arthroplasty. Intraoperative X-Ray 08/03/25 13:31 IMPRESSION: Fluoroscopy used during right total hip arthroplasty. Labs Labs: Laboratory Results - last 24 hr 08/04/25 06:12 WBC 13.8 H RBC 3.20 L Hgb 9.4 L D Hct 28.5 L MCV 89.1 MCH 29.4 MCHC 33.0 RDW 12.5 Plt Count 155 MPV 10.4 Immature Gran % (Auto) 0.6 H Neut % (Auto) 87.1 H Lymph % (Auto) 6.9 L [place] % (Auto) 5.3 Eos % (Auto) 0.0 Baso % (Auto) 0.1 L Lymph # (Auto) 0.95 [place] # (Auto) 0.7 H Eos # (Auto) 0.0 Baso # (Auto) 0.0 Abs Immat Gran (auto) 0.08 H Absolute Neuts (auto) 12.1 H Absolute Nucleated RBC 0.000 Nucleated RBC % 0.0 Sodium 137 Potassium 3.7 Chloride 105 Carbon Dioxide 27 Anion Gap 5 BUN 11 Creatinine 0.59 L Estim Creat Clear Calc 65 Estimated GFR > 60 Glucose 110 Calcium 8.7
[2025-08-04 07:48] VITALS: BP 127/62; PULSE 82; RESP 16; TEMP 37.4; O2SAT 100
[2025-08-04] MEDS: ceFAZolin 2 GM in SODIUM CHLORIDE 0.9% IV 50 ML 100 ML IVPB (08:17)
[2025-08-04] MEDS: CHOLECALCIFEROL (VITAMIN D3) 25 MCG (1,000 UNITS) TABLET 50 MCG PO (08:27)
[2025-08-04] MEDS: CYANOCOBALAMIN 500 MCG TABLET 2500 MCG PO (08:27)
[2025-08-04] MEDS: SENNA/DOCUSATE SODIUM TABLET 2 TAB PO (08:28)
[2025-08-04] MEDS: CELECOXIB 200 MG CAPSULE PO (08:28)
[2025-08-04] MEDS: DOXYCYCLINE HYCLATE 100 MG TABLET PO (08:28)
[2025-08-04] MEDS: APIXABAN 2.5 MG TABLET PO (08:28)
[2025-08-04] MEDS: VANCOMYCIN HCL 1,000 MG in SODIUM CHLORIDE 0.9% IV 250 ML 250 MG IVPB (09:28)
[2025-08-04 11:46] VITALS: BP 135/61; PULSE 80; RESP 16; TEMP 36.4; O2SAT 98
== END 2025-08-04 14:32 | disposition home or self-care (01) ==
LOC: ANHSURGERY 07:58 → ANH3MEDSUR 14:15
PROVIDERS: PCP Family Medicine; Visit Provider Orthopaedic Surgery
PROC: (CPT 27130; principal; 2025-08-03 08:30)
DX: M16.11 Unilateral primary osteoarthritis, right hip (principal); M25.751 Osteophyte, right hip; I10 Essential (primary) hypertension; G89.29 Other chronic pain; M25.552 Pain in left hip; M25.551 Pain in right hip; M54.42 Lumbago with sciatica, left side; M54.41 Lumbago with sciatica, right side; K59.09 Other constipation; Z79.891 Long term (current) use of opiate analgesic; Z98.890 Other specified postprocedural states; Z98.1 Arthrodesis status; Z98.51 Tubal ligation status; Z90.49 Acquired absence of other specified parts of digestive tract; Z87.891 Personal history of nicotine dependence; Z86.0100 Personal history of colon polyps, unspecified; Z80.8 Family history of malignant neoplasm of other organs or systems; Z80.52 Family history of malignant neoplasm of bladder; Z80.0 Family history of malignant neoplasm of digestive organs; Z82.49 Family history of ischemic heart disease and other diseases of the circulatory system
CPT/HCPCS: 27130; 36415; 73501; 80048; 85025; 97110; 97161; 97165; 97530; 97535; 99199; J0690; A9270; C1776; J0166; J1100; J1171; J1885; J2003; J2270; J2371; J2405; J2704; J2795; J3010; J3373; J7030; J7050; J7120

== ENCOUNTER 2025-08-30 13:10 | Outpatient (CLI) | payer MEDICARE, SELFPAY ==
--- NOTE | ~2025-08-30 | XR_ITS ---
EXAMINATION: XR hip RT 2V w AP pelvis DATE: 08/30/2025 13:38 INDICATION: Pain TECHNIQUE: 3 images were obtained COMPARISON: X-ray right hip 08/03/2025 FINDINGS: Bilateral hip arthroplasties. Grossly stable appearance of the right acetabulum and left acetabulum. Correlate clinically. Bones appear osteopenic. There is bowel gas and stool projecting over the pelvis which limits evaluation. There are a few less than 1.0 cm calcifications projecting over the pelvis which may represent phleboliths, however, a distal ureteral stone or bladder stone or possible. No fracture. No dislocation. IMPRESSION: 1. Bilateral hip arthroplasties. 2. No fracture. No dislocation. 3. Grossly stable appearance of the right acetabulum and left acetabulum. Correlate clinically. Reviewed, dictated and finalized at location Q. IMPRESSION: 1. Bilateral hip arthroplasties. 2. No fracture. No dislocation. 3. Grossly stable appearance of the right acetabulum and left acetabulum. Corre late clinically.
--- OUTSIDE RECORDS SUMMARY | 2025-08-30 14:05 | XMS_ITS | Clinical Summary ---
Author Organization [facility] Address [facility] [place] [address] Care Team Providers Care Route Driver [employer] Name Role Phone Unavailable Primary Care Provider [...]
== END 2025-08-30 13:11 | disposition home or self-care (01) ==
PROVIDERS: PCP Family Medicine; Visit Provider Orthopaedic Surgery
DX: R52 Pain, unspecified (principal); Z96.643 Presence of artificial hip joint, bilateral
CPT/HCPCS: 73502

== ENCOUNTER 2025-09-14 14:51 | Outpatient (CLI) | payer MEDICARE, SELFPAY ==
--- NOTE | ~2025-09-14 | DEXA_ITS ---
Bone Density Report Name: KEELY OVIEDO Age: 74 Sex: Female Ethnicity: White Date of : 1950 Indication: osteopenia; monitoring treatment; height loss; Referring Provider: BRIAN ARNDT Study: Bone densitometry was performed. Exam Date: September 14, 2025 Accession number: [id number] Bone Density: Region BMD T-score Z-score Classification AP Spine(L1, L2) 0.820 -1.4 0.9 Osteopenia World Health Organization criteria for BMD impression classify patients as: Normal (T-score at or above -1.0), Osteopenia (T-score between -1.0 and -2.5), or Osteoporosis (T-score at or below -2.5). Previous Exams: -- Region Exam Age BMD T-score BMD Change BMD Change Date g/cm2 vs Baseline vs Previous -- AP Spine (L1-L2) 09/14/2025 74 0.820 -1.4 11.5%* -3.7%* 04/03/2019 68 0.852 -1.2 15.9%* 4.8%* 02/20/2016 65 0.813 -1.5 10.6%* -0.3% 02/11/2014 63 0.816 -1.5 10.9%* -0.5% 01/07/2012 61 0.820 -1.4 11.4%* 11.4%* 01/04/2010 59 0.736 -2.2 -- *Denotes significance at 95% confidence level, LSC for AP Spine = 0.022 g/cm2 Rate of change results reflect vertebral levels common to all scans Clinical Information Provided by Patient: Is being treated for osteoporosis Has used the following medications: Reclast (i.e. zoledronate), Vitamin D, Calcium Patient maximum height was 68 Menopause Age: 43 Drinks caffeinated beverages Onset of menses at age 11 Number of children 2 Impression: The patient has low bone mass, based on the Total Spine T-score. The BMD for the AP Spine (L1-L2) decreased, changing by -3.7% since the last DXA exam. Discussion: SIGNIFICANT BONE LOSS OBSERVED. Adherence to therapy (including calcium and vitamin D intake) should be assessed. If compliance is not a factor, review management and exclusion of secondary causes of bone loss. It is important to ask patients whether they are taking their medications and to encourage continued and appropriate compliance with their osteoporosis therapies to reduce fracture risk. It is also important to review their risk factors and encourage appropriate calcium and vitamin D intakes, exercise, fall prevention and other lifestyle measures. Follow-Up: Consider a repeat BMD and Vertebral Fracture Assessment (VFA) exam in 2 years or sooner if medically necessary, to reassess this patient's status. Reported by: HERBERTH on 09/14/2025 3:40:00 PM. Reviewed, dictated and finalized at location A.
== END 2025-09-14 14:52 | disposition home or self-care (01) ==
LOC: MICIMG 14:52
PROVIDERS: PCP Family Medicine; Visit Provider Orthopaedic Surgery
DX: M85.88 Other specified disorders of bone density and structure, other site (principal); M81.0 Age-related osteoporosis without current pathological fracture
CPT/HCPCS: 77080